=== PATIENT | female | born 1985 | race Caucasian/White ===

== ENCOUNTER 2024-04-04 11:33 | Emergency (ER) | payer OTHER, SELFPAY ==
[2024-04-04 11:35] VITALS: BP 102/73; PULSE 72; RESP 20; TEMP 36.1; O2SAT 100
--- NOTE | 2024-04-04 12:01 | PC.NURSE ---
Pt arrives with [employer] worker who states pt had alcohol wipe solution stored in her room and was believed to be huffing it. The [place] worker states the patient was then diluting the solution with coffee and was drinking it. Pt denies taking/drinking anything today. Pt states she took her normal meds and is denying any suicidal or homicidal ideation at this time.
[2024-04-04 12:30] LABS: Basophils Absolute Auto 0.1 K/mm3 (0.0-0.1); Basophils Percent Auto 1.5 % (0.2-1.2); Eosinophils Absolute Auto 0.2 K/mm3 (0-0.3); Eosinophils Percent Auto 4.1 % (0-4.4); Hematocrit 34.9 % (37.0-47.0); Hemoglobin 10.7 g/dL (12.0-15.0); Immature Granulocyte Absolute 0.01 K/mm3 (0.00-0.031); Immature Granulocyte Percent A 0.3 % (0-0.5); Immature Platelet Fraction Pct 5.6 % (0.9-11.2); Lymphocytes Absolute Auto 1.57 K/mm3 (0.9-3.2); Lymphocytes Percent Auto 40.1 % (18.3-44.2); Mean Corpuscular HGB Conc 30.7 g/dl (32-36); Mean Corpuscular Hemoglobin 25.7 pg (26-34); Mean Corpuscular Volume 83.9 fl (80-100); Mean Platelet Volume 11.6 fl (7.4-10.4); Monocytes Absolute Auto 0.4 K/mm3 (0.1-0.6); Neutrophils Absolute Auto 1.7 K/mm3 (1.3-6.7); Platelet Count Result 186 k/mm3 (150-375); Red Blood Count 4.16 M/mm3 (4.2-5.4); Red Cell Distribution Width 22.5 % (11.5-14.5); White Blood Count 3.9 K/mm3 (4.5-10.0)
[2024-04-04 12:38] LABS: Appearance Urine Clear (Clear); Bilirubin Urine Negative (Negative); Blood Urine Negative (Negative); Color Urine Yellow (Yellow); Glucose Urine UA Negative (Negative); Ketones Urine Negative (Negative); Leukocyte Esterase Ur Negative LEU/UL (Negative); Nitrate Urine Negative (Negative); Protein Urine Negative (Negative); Specific Grav Ur 1.008 (1.001-1.035); Urobilinogen Urine 0.2 mg/dL (<2.0)
[2024-04-04 12:42] LABS: Ethanol < 10 mg/dL (<10)
[2024-04-04 12:44] LABS: Alanine Aminotransferase 21 U/L (6-35); Albumin Level 4.3 g/dL (3.5-5.1); Alkaline Phosphatase 43 U/L (38-126); Anion Gap 7 mmol/L (4-12); Aspartate Amino Transferase 29 U/L (14-36); Bilirubin,Total 0.4 mg/dL (0.2-1.3); Blood Urea Nitrogen 7 mg/dL (7-17); Carbon Dioxide 25 mmol/L (22-30); Chloride 106 mmol/L (98-107); Estimated CRCL calculation 52 ml/min; Estimated Glomerular Filt Rate 55; Glucose 82 mg/dL (65-110); Potassium 3.7 mmol/L (3.4-5.0); Sodium 138 mmol/L (137-145)
[2024-04-04 12:46] LABS: Add Urine Microscopic? NO
[2024-04-04 12:53] LABS: Barbiturate Screen Urine Negative (Negative); Benzodiazepines Screen Urine Positive (Negative)
[2024-04-04 12:58] LABS: Anisocytosis 1+; Hypochromasia 1+; Microcytosis 1+ (NORMAL); Ovalocytes 1+; Platelet Estimate Adequate (Adequate); Schistocytes None Seen
[2024-04-04 13:12] LABS: Amphetamine Screen Urine Negative (Negative); Cannabinoid Screen Urine Negative (Negative); Cocaine Screen Urine Negative (Negative); Methadone Screen Urine Negative (Negative); Opiate Screen Urine Negative (Negative); Phencyclidine Screen Urine Negative (Negative)
[2024-04-04 14:49] LABS: SARS-CoV-2 RNA PCR Negative (Negative)
--- NOTE | 2024-04-04 15:18 | ED.GENADULT ---
HPI - General Adult General Chief complaint: Psychiatric Symptoms Stated complaint: L foot swelling Time Seen by Provider: 04/04/24 11:38 History of Present Illness HPI narrative: Patient is a 39-year-old female who presents to the ER from [facility] for evaluation of a foot issue. She has had flaking itching of her foot for couple weeks. She is currently in alcohol rehab. She had been drinking seen at [facility] while over there but has not had any for several days. No fevers chills or sweats. No SI or HI. She reports passive depressed mood. Review of Systems Review of Systems: All systems reviewed & are unremarkable except as noted in HPI and below Constitutional: Constitutional: Reports no additional constitutional complaints ENT: Reports system reviewed and no additional complaints, except as documented Cardiovascular: Cardiovascular: Reports no additional cardiovascular complaints Respiratory: Respiratory: Reports no additional respiratory complaints Musculoskeletal: Musculoskeletal: Reports no additional musculoskeletal complaints Integumentary/Breasts: Skin/Breast: Reports pruritus, Denies erythema and Denies rash Neurologic: Reports system reviewed and no additional complaints, except as documented Psychiatric: Psychiatric: Reports depression, Denies homicidal ideation and Denies suicidal ideation [facility] Past Medical History Medical History (Updated 04/04/24 @ 15:22 by Junaid Rojo MD) Alcohol abuse Depression Social History Social History Substance use type: unknown Exam Narrative: GENERAL: Well-appearing, well-nourished, and in no acute distress. HEAD: Normocephalic, atraumatic. ENT: Mucous membranes moist. CHEST: Clear to auscultation. No respiratory distress. HEART: Regular rate and rhythm. Normal peripheral pulses. ABDOMEN: Soft, nontender, nondistended. EXTREMITIES: Normal range of motion. No edema. SKIN: Warm, dry, no rash. athlete's foot flaking skin with mild redness. NEURO: Alert and oriented x3. PSYCH: Normal mood and affect. Course Course Emergency Course: Discussed treatment plan. Discharge. Patient has access to Xanax at her facility. Vital Signs Vital signs: Vital Signs Temperature 97 F L 04/04/24 11:35 Pulse Rate 72 04/04/24 11:35 Respiratory Rate 20 04/04/24 11:35 Blood Pressure 102/73 04/04/24 11:35 Pulse Oximetry 100 04/04/24 11:35 Oxygen Delivery Room Air 04/04/24 11:35 Temperature 97 F L 04/04/24 11:35 Pulse Rate 72 04/04/24 11:35 Respiratory Rate 04/04/24 11:35 Blood Pressure 102/73 04/04/24 11:35 Pulse Oximetry 04/04/24 11:35 Oxygen Delivery Room Air 04/04/24 11:35 Medical Decision Making Vital Signs Vital Signs: Vital Signs Temperature 97 F L 04/04/24 11:35 Pulse Rate 72 04/04/24 11:35 Respiratory Rate 04/04/24 11:35 Blood Pressure 102/73 04/04/24 11:35 Pulse Oximetry 04/04/24 11:35 Oxygen Delivery Room Air 04/04/24 11:35 Temperature 97 F L 04/04/24 11:35 Pulse Rate 72 04/04/24 11:35 Respiratory Rate 04/04/24 11:35 Blood Pressure 102/73 04/04/24 11:35 Pulse Oximetry 04/04/24 11:35 Oxygen Delivery Room Air 04/04/24 11:35 Lab Data 04/04/24 12:18 04/04/24 12:18 Labs: Lab Results 04/04/24 04/04/24 Range/Units 12:18 12:23 WBC 3.9 L (4.5-10.0) K/mm3 RBC 4.16 L (4.2-5.4) M/mm3 Hgb 10.7 L (12.0-15.0) g/dL Hct 34.9 L (37.0-47.0) % MCV 83.9 (80-100) fl MCH 25.7 L (26-34) pg MCHC 30.7 L (32-36) g/dl RDW 22.5 H (11.5-14.5) % Plt Count 186 (150-375) k/mm3 MPV 11.6 H (7.4-10.4) fl Immature Gran % (Auto) 0.3 (0-0.5) % Neut % (Auto) 43.0 L (45.5-73.1) % Lymph % (Auto) 40.1 (18.3-44.2) % [place] % (Auto) 11.0 H (2.6-8.5) % Eos % (Auto) 4.1 (0-4.4) % Baso % (Auto) 1.5 H (0.2-1.2) % Lymph # (Auto) 1.57 (0.9-3.2) K/mm
--- NOTE | 2024-04-04 23:31 | ECG_ITS ---
[facility] [address] Test Date: 2024-04-04 Pat Name: Maryjo Garduno Department: Room: Gender: F [employer]: : [id number] Requested By: Junaid Sanchez Order Number: [id number] Oni MD: Zafar Hernandez M.D. Measurements Intervals [place] Rate: 77 P: 45 WI: 150 QRS: 52 QRSD: 98 T: 36 QT: 419 QTc: 474 Interpretive Statements SINUS RHYTHM NORMAL ECG No previous ECG available for comparison Electronically Signed On 04-06-2024 08:48:09 CDT by Zafar Heranndez M.D.
== END 2024-04-04 15:56 | disposition home or self-care (01) ==
PROVIDERS: Emergency Provider Emergency Medicine
DX: B35.3 Tinea pedis (principal); F10.10 Alcohol abuse, uncomplicated; F32.A Depression, unspecified; Z20.822 Contact with and (suspected) exposure to COVID-19
CPT/HCPCS: 36415; 80053; 80307; 81003; 81025; 84443; 85025; 85055; 87635; 93005; 99283

== ENCOUNTER 2024-04-04 23:23 | Emergency (ER) | payer OTHER, SELFPAY ==
[2024-04-04 23:22] VITALS: BP 99/70; PULSE 76; RESP 16; TEMP 37.1; O2SAT 100
--- NOTE | 2024-04-04 23:44 | ED.GENADULT ---
HPI - General Adult General Chief complaint: Overdose Stated complaint: smoked fentanyl Time Seen by Provider: 04/04/24 23:41 History of Present Illness HPI narrative: Patient is a 39-year-old female who presents the emergency department this evening due to concern for overdose. EMS was called as patient was altered. Patient admits that yesterday morning around 4:00 a.m. she did smoke some weed which she did not know was laced with fentanyl. Shortly after patient's arrival, the facility the patient was sent from which she has been staying at doing some sort of drug program called and informed us that prior to her arrival here she did smoke some more fentanyl. Patient denies this stating that her last fentanyl use was yesterday morning. Patient is currently alert and oriented to person, place, time and situation and answering all of my questions although does appear to be sleepy. Related Data Allergies Allergy/AdvReac Type Severity Reaction Status Date / Time Corticosteroids AdvReac Redness of Verified 04/05/24 00:00 (Glucocorticoids) Skin PMFSH Past Medical History Medical History (Updated 04/06/24 @ 00:00 by Background Daemon) Alcohol abuse Depression Social History Social History Substance use type: marijuana and opiates Exam Narrative: General: Alert, awake, afebrile, in no acute distress. HEENT: PERRL, no rhinorrhea, no post nasal drip, oropharynx clear. Cardiovascular: Regular rate and rhythm, no murmurs, rubs or gallops, no peripheral edema. Respiratory: Clear to auscultation bilaterally, no tachypnea, no wheezing, no rhonchi, no rubs, no respiratory distress. Abdomen: Soft, nontender, nondistended, no rebound, no guarding, no peritoneal signs. Musculoskeletal: No joint swelling or deformity, normal muscle tone. Skin: No rashes or petechia, no signs of infection. Psychiatric: Alert and oriented, normal behavior and judgment for situation. Neurological: Alert and oriented to person, place, and time. Follows all commands. No focal deficits, speech is clear and fluent. Course Vital Signs Vital signs: Vital Signs Temperature 98.8 F 04/04/24 23:22 Pulse Rate 76 04/04/24 23:22 Respiratory Rate 16 04/04/24 23:22 Blood Pressure 99/70 L 04/04/24 23:22 Pulse Oximetry 100 04/04/24 23:22 Oxygen Delivery Room Air 04/04/24 23:22 Temperature 98.8 F 04/04/24 23:22 Pulse Rate 76 04/05/24 04:06 Respiratory Rate 15 04/05/24 04:06 Blood Pressure 102/80 04/05/24 04:06 Pulse Oximetry 100 04/05/24 04:06 Oxygen Delivery Room Air 04/05/24 00:05 Medical Decision Making MDM Narrative Medical decision making narrative: The patient was evaluated by myself in the emergency department. History is obtained from patient who is an independent historian along with EMS and physical exam was performed. External medical records were reviewed at this time. IV was established and pertinent tests were ordered. Patient was administered 1 L IV fluid bolus with normal saline. EKG was obtained which revealed sinus rhythm rate of 77 beats per minute. No ST changes, T wave inversions or evidence of acute ischemia. EKG was independently interpreted by me and is currently pending official cardiology read. Laboratory results obtained revealing no acute process. Urinary drug screen did return back positive for benzos. Differential diagnosis considerations include drug intoxication versus withdrawal. Comorbidities impacting this visit include history of polysubstance abuse. I have evaluated and discussed social determinants of health with the patient that could potentially impact subsequent diagnosis and treatment plans. On repeat assessment of the patient, reevaluation revealed that the patient is doing well and is in no acute distress. Patient symptoms have improved since she arrived to our emergency department. She was observed in our facility for 4 hours. Repeat vital signs were a
[2024-04-05] MEDS: SODIUM CHLORIDE 0.9% IV 1,000 ML 999 ML IV CONT ×2 (00:02→01:46)
[2024-04-05] MEDS: NALOXONE HCL 0.4 MG/ML VIAL IV PUSH (00:02)
[2024-04-05 00:05] VITALS: O2SAT 100
[2024-04-05 00:06] VITALS: RESP 14
[2024-04-05 00:11] LABS: Basophils Absolute Auto 0.1 K/mm3 (0.0-0.1); Basophils Percent Auto 1.4 % (0.2-1.2); Eosinophils Absolute Auto 0.2 K/mm3 (0-0.3); Eosinophils Percent Auto 4.8 % (0-4.4); Immature Granulocyte Absolute 0.01 K/mm3 (0.00-0.031); Immature Granulocyte Percent A 0.2 % (0-0.5); Immature Platelet Fraction Pct 5.3 % (0.9-11.2); Lymphocytes Absolute Auto 2.03 K/mm3 (0.9-3.2); Lymphocytes Percent Auto 46.8 % (18.3-44.2); Mean Corpuscular HGB Conc 31.3 g/dl (32-36); Mean Corpuscular Hemoglobin 25.8 pg (26-34); Mean Corpuscular Volume 82.5 fl (80-100); Mean Platelet Volume 10.7 fl (7.4-10.4); Monocytes Absolute Auto 0.5 K/mm3 (0.1-0.6); Monocytes Percent Auto 10.4 % (2.6-8.5); Neutrophils Absolute Auto 1.6 K/mm3 (1.3-6.7); Neutrophils Percent Auto 36.4 % (45.5-73.1); Platelet Count Result 180 k/mm3 (150-375); Red Blood Count 3.88 M/mm3 (4.2-5.4); Red Cell Distribution Width 22.5 % (11.5-14.5); White Blood Count 4.3 K/mm3 (4.5-10.0)
[2024-04-05 00:17] LABS: Acetaminophen < 10 ug/mL (10-30); Salicylate < 1.0 mg/dL (2-20)
[2024-04-05 00:19] LABS: Alanine Aminotransferase 19 U/L (6-35); Albumin Level 3.7 g/dL (3.5-5.1); Alkaline Phosphatase 41 U/L (38-126); Anion Gap 4 mmol/L (4-12); Aspartate Amino Transferase 23 U/L (14-36); Bilirubin,Total 0.2 mg/dL (0.2-1.3); Blood Urea Nitrogen 7 mg/dL (7-17); Calcium 9.1 mg/dL (8.4-10.2); Carbon Dioxide 25 mmol/L (22-30); Chloride 108 mmol/L (98-107); Estimated CRCL calculation 62 ml/min; Estimated Glomerular Filt Rate > 60; Glucose 96 mg/dL (65-110); Potassium 3.5 mmol/L (3.4-5.0); Sodium 137 mmol/L (137-145)
[2024-04-05 00:31] LABS: Ethanol < 10 mg/dL (<10)
[2024-04-05 00:44] LABS: Platelet Estimate Adequate (Adequate)
[2024-04-05 00:45] LABS: Anisocytosis 1+; Microcytosis 1+ (NORMAL); Ovalocytes 1+; Schistocytes None Seen
[2024-04-05 00:59] LABS: Amphetamine Screen Urine Negative (Negative); Barbiturate Screen Urine Negative (Negative); Benzodiazepines Screen Urine Positive (Negative); Cannabinoid Screen Urine Negative (Negative); Cocaine Screen Urine Negative (Negative); Methadone Screen Urine Negative (Negative); Opiate Screen Urine Negative (Negative); Phencyclidine Screen Urine Negative (Negative)
[2024-04-05 01:54] VITALS: BP 105/72; PULSE 72; RESP 16; O2SAT 99
[2024-04-05 03:00] VITALS: BP 102/80; PULSE 73; RESP 16; O2SAT 98
[2024-04-05 04:06] VITALS: BP 102/80; PULSE 76; RESP 15; O2SAT 100
== END 2024-04-05 04:08 ==
PROVIDERS: Emergency Provider Emergency Medicine
DX: T40.411A Poisoning by fentanyl or fentanyl analogs, accidental (unintentional), initial encounter (principal); F10.10 Alcohol abuse, uncomplicated; F32.A Depression, unspecified
CPT/HCPCS: 36415; 80053; 80307; 81003; 81025; 84443; 85025; 85055; 87635; 93005; 96361; 96374; 99284; J2310; J7030

== ENCOUNTER 2025-10-17 16:17 | Emergency (ER) | payer OTHER, SELFPAY ==
--- OUTSIDE RECORDS SUMMARY | 2025-10-16 13:20 | XMS_ITS ---
Author Organization [facility] Address [address] [place] [address] Phone [phone] Care Team Providers Care Ethics Instructor Name Role Phone Nupur Pickard Primary Care Provider [phone] Miri Kirby Unavailable Elba Kumar Unavailable [phone] REASON FOR VISIT 1 week f/u Social History Tobacco Use: Social History Observation Description Date Details (start date - stop date) Current Smoker NA - NA Sex Observation Social History Observation Description Sex Observation Female Sexual Orientation Social History Observation Description Sexual Orientation Straight or heterose xual Gender Identity Social History Observation Description Gender Identity Female SDOH Assessments Tool Assessment Assessment LOINC Value Assessment Notes Goals Interventions General Notes SUNNY (LOINC: 07974-6 ) Total Score: 15 Please specify Case Management Follow-up Alcohol use: Drinks at least 20 beers, recent relapse Dietary habits: Does not eat meat Living situation: Residing in a women's facility until October 28 Date Completed/Updated: 09/10/2025 What is your current housing situation? 18899-0 I do not have housing (staying with others, in a hotel, in a long term, living outside on the street, on a beach, or in a park) (RB00912-7) Are you worried about losing your housing? 61815-0 Yes (LA33-6) What is the highest level of school that you have finished? 97883-0 More than high school (QK10703-7) What is your current work situation? 19656-1 Unemployed and seeking work (VI93833-8) In the past year, have you o r any family members you live with been unable to get any of the following when it was really needed? Check all that apply 02414-3 Clothing (SF14706-6) Utilities (GM00905-9) Phone (JN12847-2) Medicine or any health care (medical, dental, mental health or vision) (VW29259-2) Food (OR58326-8) Has lack of transportation k ept you from medical appointments, meetings, work or from getting things needed for daily living? 20267-5 Yes, it has kept me from medical appointments or from getting my medications (AR90207-0) Yes, it has kept me from non-medical meetings, appointments, work, or getting things needed for daily living (YH53986-0) How often do you see or talk to people that you care about and feel close to? (For example: talking to friends on the phone, visiting friends or family, going to roman catholic or club meetings) 52283-9 More than 5 times a week (BD61443-4) How stressed are you? Stress is when someone feels tense, nervous, anxious, or can\t sleep at night because their mind is troubled 79884-2 Very much (BZ10179-0) In the past year have you sp ent more than 2 nights in a row in a skilled nursing, longterm, long-term center, or juvenile correctional facility? 97834-1 No (LA32-8) Do you feel physically and e motionally safe where you currently live? 94396-2 No (LA32-8) In the past year, have you b een afraid of your partner or ex-partner? 07747-7 No (LA32-8) Are you a refugee? I choose not to answer this question What country are you from? I choose not to answer this question PRAPARE Score: 15 Enabling Services Provided? Yes Social History Social Determinants Social Info Question Answer Notes PRAPARE Date Completed/Updated: 09/10/2025 What is your current housing situation? I do not have housing (staying with others, in a hotel, in a long term, living outside on the street, on a beach, or in a park) Are you worried about losing your housing? Yes What is the highest level of school that you have finished? More than high school What is your current work situation? Unemployed and seeking work In the past year, have you o r any family members you live with been unable to get any of the following when it was really needed? Check all that apply Food,Clothing,Utilities,Medicine or any health care (medical, dental, mental health or vision),Phone Has lack of transportation k ept you from medical appointments, meetings, work or from getting things needed for daily living? Yes, it has kept me from medical appointments or from getting my medications,Yes, it has kept me from non-medical meetings, appointments, work, or getting things needed for daily living How often do you see or talk to people that you care about and feel close to? (For example: talking to friends on the phone, visiting friends or family, going to roman catholic or club meetings) More than 5 times a week How stressed are you? Stress is when someone feels tense, nervous, anxious, or can\t sleep at night because their mind is troubled Very much In the past year have you sp ent more than 2 nights in a row in a skilled nursing, longterm, long-term center, or juvenile correctional facility? No Are you a refugee? I choose not to answer this q uestion What country are you from? I choose not to answe r this question Do you feel physically and e motionally safe where you currently live? No In the past year, have you b een afraid of your partner or ex-partner? No PRAPARE Score: 15 Enabling Services Provided? Yes Please specify Case Management Follow-up Tobacco Use: Social Info Question Answer Notes Tobacco Control (Standard) Tobacco use: Current smoker Section Notes: Alcohol use: Drinks at least 20 beers, recent relapse Dietary habits: Does not eat meat Living situation: Residing in a women's facility until October 28 Encounters Date Time Type Facility Location Provider Diagnosis 10/16/2025 01:20 PM Office Visit [facility] [address] [place] [address] Elba Kumar Mental health disorder F99 Assessments Encounter Date Diagnosis (ICD Code) Assessment Notes Treatment Notes Section Notes 10/16/2025 Mental health disorder (ICD-10 - F99) 10/16/2025 Other Clinician met w ith client to assess needs and preferences for services. Clinician explored therapy goals, history of engagement, psychiatric history and diagnosis. Clinician provided education on same day call in therapy, traditional therapy and dramatic coach services. Referrals for preferred methods will be sent following appointment. Plan Of Treatment Treatment Notes Assessment Notes Other Clinician met with aba delgado to assess needs and preferences for services. Clinician explored therapy goals, history of engagement, psychiatric history and diagnosis. Clinician provided education on same day call in therapy, traditional therapy and dramatic coach services. Referrals for preferred methods will be sent following appointment. Next Appt Details Follow Up: prn, Reason: Provider Name:Elba Kumar, 10/22/2025 02:00:00 PM, [address], [place], [address], Provider Name:Elba mayberry, 10/30/2025 09:00:00 AM, [address], [place], [address], Provider Name:Miri rankin, 11/14/2025 10:00:00 AM, [address] [place] [address], [id number], Medical (General) History Medical History History ICD Code severe depression ETOH colitis fatty liver Opioid use disorder Alcohol use disorder Anxiety disorder Surgical History Surgery Date(Month/Year) breast augmentation Collarbone surgery, end may Hospitalization History Reason Date(Month/Year) Concussion and intoxication, [facility] for detox 08/2025 [facility] for concussion after a fall 09/01 025 [facility] [place] 07/2024 [facility] Alcohol/Drug detox Alcohol/Drug [facility] 07/2024 Progress Notes * Maryjo GARDUNODOB:[birth year] (40 yo F)Acc No.[id number]:10/16/2025 Patient: Maryjo TRAORE Provider: Kenneth Kumar :1985 A ge:40 Y S ex:Female Date:10/16/2025 Address:[address] [place] [address] [address] [facility] [facility] Pcp:Nupur Stewart Short Check In:01:15 PM CSTCheck O ut:02:22 PM LEGAL RESEARCH ANALYST Subjective: * Chief Complaints: * HPI: a TBC For Mental Health Services: Do You Have A Psychiatric Provider? D o You Have A Psychiatric Provider? Y es Miri Kirby at [facility]. D o You Have Any Other Professional Supports? D o You Have Any Other Professional Supports? Y es MAT services with Elba Rangel at [facility]. C onsent Forms Completed During Appointment C onsent Forms Completed N one Needed at this time. A ssessment of Social Determinants of Health::: Has A PRAPARE Been Completed In The Past Year? H as a PRAPARE Been Completed In The Past Year? Y es, W as It Completed Today Using SmartForm? N o.? P sychiatric Assessment - Current Symptoms: Primary concern today Aba delgado was meeting for a 1-week mental health follow-up with clinician . O verview of Mental Health Symptoms T he client reported she feels she is in a much better place and that her medications are finally working well to help her maintain her homeostasis. The client discussed some updates on her romantic relationship; Both actual interactions she had with her partner and her cognitions about her relationship. The clincian provided psychoeducation on cyclical patterns in relationships that contribute to toxicity and productive ways to identify and break these cycles. The clinician helped the client identify DICE criteria for exploring coping strategies and understanding what is most effective for her when it comes to developing coping skills. The clinician introduced the idea of liminal spaces and watched a EVITA talk video with the client to better understand this concept. The client and clinican will meet again next week to explore the Moises Window and continue proactively planning for the client's mental health care following discharge from the unit. D epression Screening: PHQ-9 L ittle interest or pleasure in doing things N ot at all, F eeling down, depressed, or hopeless S everal days, T rouble falling or staying asleep, or sleeping too much M ore than half the days, F eeling tired or having little energy N ot at all, P oor appetite or overeating S everal days, F eeling bad about yourself or that you are a failure, or have let yourself or your family down S everal days, T rouble concentrating on things, such as reading the newspaper or watching television S ever, M oving or speaking so slowly that other people could have noticed; or the opposite, being so fidgety or restless that you have been moving around a lot more than usual N ot at all, T houghts that you would be better off or of hurting yourself in some way N ot at all, T otal Score 6 , I nterpretation M ild Depression. I ntervention D epression Screening Findings P ositive, F ollow-Up for Depression Kenneth matthews is admitted to a [facility] unit where their mental health is monitored,No Referral necessary, patient involved in behavioral health treatment,Prescribed psychotropic medications SI was from prior to hospitalization.? S creening: [place] Suicide Severity Rating Scale (LF) D o you want to initiate with S creener form SI was from prior to hospitalization, I nterpretation: M oderate Risk, 6 . Suicide Behavior Question: Have you ever done anything,started to do anything, or prepared to end your life? Y es, W ere any of these in the past 3 months? Y es, 2 . Suicidal Thoughts: Have you actually had any thoughts of killing yourself? N o, 1 . Wish to be : Have you wished you were or wished you could go to sleep and not wake up? N o.? Client has experience suicidal thoughts and behaviors in the last 3 months. Client was admitted as a High Risk and has been meeting with clinician weekly to routinely monitor her SI. The client is not currently experiencing thoughts of suicide, has no plan, and has no intent. * Screening: * * Social History: S ocial Determinants: Kenneth Bonilla ate Completed/Updated: 11/10/2024, W hat is your current housing situation? I do not have housing (staying with others, in a hotel, in a long term, living outside on the street, on a beach, or in a park), A re you worried about losing your housing? Y es, W hat is the highest level of school that you have finished? M ore than high school, W hat is your current work situation? U nemployed and seeking work, I n the past year, have you or any family members you live with been unable to get any of the following when it was really needed? Check all that apply F ood,Clothing,Utilities,Medicine or any health care (medical, dental, mental health or vision),Phone, H as lack of transportation kept you from medical appointments, meetings, work or from getting things needed for daily living? Y es, it has kept me from medical appointments or from getting my medications,Yes, it has kept me from non-medical meetings, appointments, work, or getting things needed for daily living, H ow often do you see or talk to people that you care about and feel close to? (For example: talking to friends on the phone, visiting friends or family, going to roman catholic or club meetings) M ore than 5 times a week, H ow stressed are you? Stress is when someone feels tense, nervous, anxious, or can\t sleep at night because their mind is troubled V jin much, I n the past year have you spent more than 2 nights in a row in a skilled nursing, longterm, long-term center, or juvenile correctional facility? N o, A re you a refugee? I choose not to answer this question, W hat country are you from? I choose not to answer this question, D o you feel physically and emotionally safe where you currently live? N o, In the past year, have you been afraid of your partner or ex-partner? N o, P RAPARE Score: 1 5, E nabling Services Provided? Y es, P maryjo specify C ase Management Follow-up. T obacco Use: T obacco Control (Standard) T obacco use: C urrent smoker. A lcohol use: Drinks at least 20 beers, recent relapse Dietary habits: Does not eat meat Living situation: Residing in a women's facility until October 28. Objective: * Examination: M ental Status Exam: ATTENTION AND CONCENTRATION N o deficits. APPEARANCE A ppropriate. ATTITUDE AND BEHAVIOR C ooperative. EYE CONTACT G ood. AFFECT C ongruent with reported mood. MOOD E uthymic. INSIGHT F air. JUDGMENT F air. Assessment: * Assessment: 1. M ental health disorder - F99 (Primary) Plan: * Treatment: * Procedure Codes: 9 0837 PSYTX PT&/FAMILY 60 MINUTES, Modifiers: AJ * Preventive Medicine: Counseling: S MOKING: Kenneth matthews counselled on the dangers of tobacco use and urged to quit. 1 12/17/2024 .. * Follow Up: p rn * Care Plan Details* * L RESEARCH ANALYST Electronically co-signed by Susanna Rodriguez LCSW, [id number] on 10/17/2025 at 02:49 PM LEGAL RESEARCH ANALYST Sign off status: Completed true * Provider: Kenneth Kumar Date: 12/17/2024 Generated for Artem Dyer/Saira on: 12/18/2024 04:20 PM LEGAL RESEARCH ANALYST History and Physical Notes * HPI (History of Present Illness) Category c/o Denies Symptom Duration Details Notes Catego ry Notes Depression Screening PHQ-9 Little interest or pleasure in doing things: Not at all Feeling down, depressed, or hopeless: Se veral days Trouble falling or staying a sleep, or sleeping too much: More than half the days Feeling tired or having little energy: N ot at all Poor appetite or overeating: Several day s Feeling bad about yourself o r that you are a failure, or have let yourself or your family down: Several days Trouble concentrating on thi ngs, such as reading the newspaper or watching television: Several days Moving or speaking so slowly that other people could have noticed; or the opposite, being so fidgety or restless that you have been moving around a lot more than usual: Not at all Thoughts that you would be b truman off or of hurting yourself in some way: Not at all Total Score: 6 Interpretation: Mild Depression Intervention Depression Screen ing Findings: Positive Follow-Up for Depression: Osito hirsch is admitted to a [facility] residential unit where their mental health is monitored,No Referral necessary, patient involved in behavioral health treatment,Prescribed psychotropic medications SI was from prior to hospitalization Psychiatric Assessment - Current Symptoms Primary concern today Cl jaynt was meeting for a 1-week mental health follow-up with clinician Overview of Mental Health Symptoms The client reported she feels she is in a much better place and that her medications are finally working well to help her maintain her homeostasis. The client discussed some updates on her romantic relationship; Both actual interactions she had with her partner and her cognitions about her relationship. The clincian provided psychoeducation on cyclical patterns in relationships that contribute to toxicity and productive ways to identify and break these cycles. The clinician helped the client identify DICE criteria for exploring coping strategies and understanding what is most effective for her when it comes to developing coping skills. The clinician introduced the idea of liminal spaces and watched a EVITA talk video with the client to better understand this concept. The client and clinican will meet again next week to explore the Moises Window and continue proactively planning for the client's mental health care following discharge from the unit Screening [place] Suicide Severity Rating Scale (LF) Do you want to initiate with: Screener form SI was from prior to hospitalization Client has experience suicidal thoughts and behaviors in the last 3 months. Client was admitted as a High Risk and has been meeting with clinician weekly to routinely monitor her SI. The client is not currently experiencing thoughts of suicide, has no plan, and has no intent. Interpretation:: Moderate Risk 6. Suicide Behavior Question: Have you ever done anything,started to do anything, or prepared to end your life?: Yes Were any of these in the past 3 months?: Yes 2. Suicidal Thoughts: Have you actually had any thoughts of killing yourself?: No 1. Wish to be : Have you wished you were or wished you could go to sleep and not wake up?: No Assessment of Social Determinants of Health:: Has A PRAPARE B een Completed In The Past Year? Has a PRAPARE Been Completed In The Past Year?: Yes Was It Completed Today Using SmartForm?: No [facility] Do You Have A Psychiatric Provider? Do You Have A Psychiatric Provider?: Yes Miri Kirby at [facility] Do You Have Any Other Professional Supports? Do You Have Any Other Professional Supports?: Yes MAT services with Elba Rangel at [facility] Consent Forms Co mpleted During Appointment Consent Forms Completed: None Needed at this time Examination Category Field Details Notes Category Notes Mental Status Exam ATTENTION AND CONCENTRATION No defi cits APPEARANCE Appropriate ATTITUDE AND BEHAVIOR Cooperative EYE CONTACT Good AFFECT Congruent with repor evita mood MOOD Euthymic INSIGHT Fair JUDGMENT Fair
--- NOTE | ~2025-10-17 | CT_ITS ---
EXAMINATION: CT brain wo con DATE: 10/17/2025 18:07 INDICATION: Worst headache of her life TECHNIQUE: Computed tomography (CT) of the head was performed without intravenous contrast. Sagittal and coronal reconstructions were performed. The mA was adjusted according to patient size. Iterative reconstruction technique was employed. The dose-length product was 605.33 mGy-cm. COMPARISON: None FINDINGS: No acute intracranial hemorrhage, acute infarction or abnormal extra axial fluid collection. Ventricles are normal and symmetric. No mass/mass effect. The orbits, paranasal sinuses and mastoid air cells are normal. IMPRESSION: 1. Normal head CT. Reviewed, dictated and finalized at location A. RMATION SYSTEMS PROJECT MANAGER IMPRESSION: 1. Normal head CT.
--- OUTSIDE RECORDS SUMMARY | 2025-10-17 09:00 | XMS_ITS ---
Author Organization [facility] Address [address] [place] [address] Phone [phone] Care Team Providers Care Fiber Designer Name Role Phone Nupur Pickard Primary Care Provider Miri Kirby Unavailable Allergies Allergen (clinical drug ingredient) Drug/Non Drug Allergy documented on EMR Reaction Allergy Type Onset Date Status corticosteroid and/or corticosteroid derivative (FN) Corticosteroids rash Drug Allergy 04/02/2024 Active REASON FOR VISIT Invega 156 mg due today then monthly Medications Medication SIG (Take, Route, Frequency, Duration) Notes Start Date End Date Diagnosis (ICD Code) Status Daily-Nanda - Tablet TAKE 1 TABLET BY MOUTH DAILY; Duration: 30 Adult general medical examination (ICD_10 - Z00.00) Active Docusate Sodium 100 MG Capsule 1 capsule as needed Orally Once a day; Duration: 30 day(s) 10/04/2025 Constipation (ICD_10 - K59.00) Active Magnesium Citrate 1.745 GM/30ML Solution 300 mL Orally once; Duration: 1 days 10/09/2025 Constipation (ICD_10 - K59.00) Active Buprenorphine HCl-Naloxone HCl 8-2 MG Film 1 film under the tongue and allow to dissolve Sublingual 4 times a day 10/04/2025 Opioid use disorder (ICD_10 - F11.99) Active traZODone HCl 150 MG Tablet 1 tablet at bedtime Orally Once a day; Duration: 30 days 09/30/2025 Bipolar disord er (ICD_10 - F31.9) Active OLANZapine 20 MG Tablet 1 tablet Orally Once a day; Duration: 30 days at bedtime 09/30/2025 Bipolar disorder (ICD_10 - F31.9) Active OXcarbazepine 300 MG Tablet 1 tablet Orally Twice a day; Duration: 30 days Bipolar disord er (ICD_10 - F31.9) Active Nicotine 21 MG/24HR Patch 24 Hour 1 patch to skin. 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 Refresh Tears 0.5 % Solution as directed Ophthalmic twice a day 09/18/2025 Dry eyes, bilateral (ICD_10 - H04.123) Active Pyridoxine HCl 50 MG Tablet 1 tablet Orally daily; Duration: 90 days 09/18/2025 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 Mirtazapine 15 MG Tablet 0.5 tablet at bedtime Orally Once a day; Duration: 30 days 10/03/2025 Bipolar disord er (ICD_10 - F31.9) Active busPIRone HCl 7.5 MG Tablet 1 tablet Orally 3 times a day; Duration: 30 days Bipolar disord er (ICD_10 - F31.9) Active Invega Sustenna 156 MG/ML Suspension Prefilled Syringe 1 mL in 1 week Intramuscular once a month; Duration: 30 days 10/10/2025 Bipolar disorder (ICD_10 - F31.9) Active risperiDONE 0.25 MG Tablet 1 tablet in the morning Orally Once a day 10/03/2025 Bipolar disorder (ICD_10 - F31.9) Active Invega Sustenna 234 MG/1.5ML Suspension Prefilled Syringe 1.5 mL Intramuscular Today; Duration: 1 days 10/10/2025 Bipolar disorder (ICD_10 - F31.9) Active Nicotine Polacrilex 4 MG Gum Chew 1 piece as needed for nicotine cravings Mouth/Throat up to every hour (max of 20 pieces per day) 09/30/2025 Nicotine dependence, unspecified, uncomplicated (ICD_10 - F17.200) Active hydrOXYzine Pamoate 25 mg Capsule TAKE 1 TO 2 CAPSULES BY MOUTH EVERY FOUR HOURS NEEDED FOR ANXIETY, AGITATION OR INABILITY TO SLEEP; Duration: 15 Alcohol abuse (ICD_10 - F10.10) Active Propranolol HCl 20 MG Tablet 1.5 tablets Orally 3 times a day Migraine (ICD_10 - G43.909) Active Social History Sex Observation Social History Observation Description Sex Observation Female Sexual Orientation Social History Observation Description Sexual Orientation Straight or heterose xual Gender Identity Social History Observation Description Gender Identity Female Vital Signs Vital Sign Value Appt Date Weight 117.6 lbs 10/17/2025 Height 61 in 10/17/2025 BMI 22.22 kg/m2 10/17/2025 Blood pressure systolic 108 mm Hg 10/17/20 25 Blood pressure diastolic 68 mm Hg 025 Heart Rate 79 /min 10/17/2025 Oximetry 98 % 10/17/2025 Respiratory Rate 18 /min 10/17/2025 Encounters Date Time Type Facility Location Provider Diagnosis 09:00 AM Office Visit [facility] [place] [address] Miri Kirby Bipolar disorder F31.9 Assessments Encounter Date Diagnosis (ICD Code) Assessment Notes Treat ment Notes Section Notes 10/17/2025 Bipolar disorder (ICD-10 - F31.9) Plan Of Treatment Next Appt Details Provider Name:Elba Kumar, 10/22/2025 02:00:00 PM, [address], [place], [address], Provider Name:Elba mayberry, 10/30/2025 09:00:00 AM, [address] [place], [address], Provider Name:Miri Cartwright Montrell rankin, 11/14/2025 10:00:00 AM, [address] [place], [address], Medications Administered Medication Instructions Date of Administration Dosage Diagnosis (ICD Code) Notes Invega Sustenna 10/17/2025 156 mg [place] manFrancia 10/17/2025 08:35 AM EVALUATION ASSISTANT >Given IM RMD, tolerated well. [facility]# [id number]. Medical (General) History Medical History History ICD Code severe depression ETOH colitis fatty liver Opioid use disorder Alcohol use disorder Anxiety disorder Surgical History Surgery Date(Month/Year) breast augmentation Collarbone surgery, may Hospitalization History Reason Date(Month/Year) Concussion and intoxication, [facility], [place] for detox 08/2025 [facility] for concussion after a fall 09/01 025 [place] 07/2024 [facility] Alcohol[facility]Drug detox [facility] Progress Notes * Maryjo GARDUNODOB:[birth year] (40 yo F)Acc No.[id number]:10/17/2025 Progress Note Patient: Maryjo TRAORE Provider: Chloe Kirby DNP, PMHNP-BC, ICE SELLER :1985 A ge:40 Y S ex:Female Date:10/17/2025 Address:[address] [place] [address] , [facility] Pcp:Nupur Stewart Short Check In:07:59 AM CSTCheck O ut:08:52 AM EVALUATION ASSISTANT Subjective: * Chief Complaints: * I nvega 156 mg due today then monthly * Screening: * * Medical History: * Surgical History: b reast augmentation Collarbone surgery, may * Hospitalization/Major Diagno stic Procedure: [facility] 07/2024[place] 05/2024 stays a couple of times Alcohol/Drug Detox [facility]/Drug detox [place] 07/20[facility], * Medications: T akingIsoniazid 300 MG Tablet 3 tablets Orally Once a week Rifapentine 150 MG Tablet 6 tablets Orally once a week Pyridoxine HCl 50 MG Tablet 1 tablet Orally daily Refresh Tears 0.5 % Solution as directed Ophthalmic twice a day MiraLax 17 GM/SCOOP Powder 17 gm Orally daily As needed constipationNicotine 21 MG/24HR Patch 24 Hour 1 patch to skin. Transdermal Once a day, removing at bedtime Melatonin 5 MG Tablet 1 tablet at bedtime as needed Orally Once a day OXcarbazepine 300 MG Tablet 1 tablet Orally Twice a day OLANZapine 20 MG Tablet 1 tablet Orally Once a day at bedtimetraZODone HCl 150 MG Tablet 1 tablet at bedtime Orally Once a day Buprenorphine HCl-Naloxone HCl 8-2 MG Film 1 film under the tongue and allow to dissolve Sublingual 4 times a day Docusate Sodium 100 MG Capsule 1 capsule as needed Orally Once a day Daily-Nanda - Tablet TAKE 1 TABLET BY MOUTH DAILY Magnesium Citrate 1.745 GM/30ML Solution 300 mL Orally once hydrOXYzine Pamoate 25 mg Capsule TAKE 1 TO 2 CAPSULES BY MOUTH EVERY FOUR HOURS NEEDED FOR ANXIETY, AGITATION OR INABILITY TO SLEEP Propranolol HCl 20 MG Tablet 1.5 tablets Orally 3 times a day Nicotine Polacrilex 4 MG Gum Chew 1 piece as needed for nicotine cravings Mouth/Throat up to every hour (max of 20 pieces per day) Invega Sustenna 234 MG/1.5ML Suspension Prefilled Syringe 1.5 mL Intramuscular Today Invega Sustenna 156 MG/ML Suspension Prefilled Syringe 1 mL in 1 week Intramuscular once a month busPIRone HCl 7.5 MG Tablet 1 tablet Orally 3 times a day risperiDONE 0.25 MG Tablet 1 tablet in the morning Orally Once a day Mirtazapine 15 MG Tablet 0.5 tablet at bedtime Orally Once a day Taking Isoniazid 300 MG Tablet 3 tablets Orally Once a week Taking Rifapentine 150 MG Tablet 6 tablets Orally once a week Taking Pyridoxine HCl 50 MG Tablet 1 tablet Orally daily Taking Refresh Tears 0.5 % Solution as directed Ophthalmic twice a day Taking MiraLax 17 GM/SCOOP Powder 17 gm Orally daily As needed constipationTaking Nicotine 21 MG/24HR Patch 24 Hour 1 patch to skin. Transdermal Once a day, removing at bedtime Taking Melatonin 5 MG Tablet 1 tablet at bedtime as needed Orally Once a day Taking OXcarbazepine 300 MG Tablet 1 tablet Orally Twice a day Taking OLANZapine 20 MG Tablet 1 tablet Orally Once a day at bedtimeTaking traZODone HCl 150 MG Tablet 1 tablet at bedtime Orally Once a day Taking Buprenorphine HCl-Naloxone HCl 8-2 MG Film 1 film under the tongue and allow to dissolve Sublingual 4 times a day Taking Docusate Sodium 100 MG Capsule 1 capsule as needed Orally Once a day Taking Daily-Nanda - Tablet TAKE 1 TABLET BY MOUTH DAILY Taking Magnesium Citrate 1.745 GM/30ML Solution 300 mL Orally once Taking hydrOXYzine Pamoate 25 mg Capsule TAKE 1 TO 2 CAPSULES BY MOUTH EVERY FOUR HOURS NEEDED FOR ANXIETY, AGITATION OR INABILITY TO SLEEP Taking Propranolol HCl 20 MG Tablet 1.5 tablets Orally 3 times a day Taking Nicotine Polacrilex 4 MG Gum Chew 1 piece as needed for nicotine cravings Mouth/Throat up to every hour (max of 20 pieces per day) Taking Invega Sustenna 234 MG/1.5ML Suspension Prefilled Syringe 1.5 mL Intramuscular Today Taking Invega Sustenna 156 MG/ML Suspension Prefilled Syringe 1 mL in 1 week Intramuscular once a month Taking busPIRone HCl 7.5 MG Tablet 1 tablet Orally 3 times a day Taking risperiDONE 0.25 MG Tablet 1 tablet in the morning Orally Once a day Taking Mirtazapine 15 MG Tablet 0.5 tablet at bedtime Orally Once a day * Allergies: C orticosteroids: rash - Onset Date 04/02/2024no[Allergies Verified] Objective: * Vitals: W t:117.6, Ht: 61, BMI:22.22, BP:108/68, HR:79, Oxygen sat %:98, RR:18. Assessment: * Assessment: 1. B ipolar disorder - F31.9 (Primary) Plan: * Treatment: * Therapeutic Injections: Invega Sustenna : 156 mg (Dose No:1) (Route: Intramuscular) given by ANUEL Rios on right deltoid (Bipolar disorder) * Procedure Codes: [id number] THER/PROPH/DIAG INJ, SC/IM * * UATION ASSISTANT Sign off status: Completed true * Provider: Chloe Kirby DNP, PMHNP-BC, ICE SELLER Date: 12/18/2024 Generated for Printing/Faxing/eTransmitting on: 12/18/2024 04:20 PM EVALUATION ASSISTANT
[2025-10-17 16:19] VITALS: BP 109/73; PULSE 79; RESP 16; TEMP 36.6; O2SAT 100
--- OUTSIDE RECORDS SUMMARY | 2025-10-17 16:21 | XMS_ITS | Clinical Summary ---
Author Organization [facility] Address [address] [place] [address] Care Team Providers Care Nursing Staff Development Coordinator Name Role Phone Ramon Randolph MD Primary Care Provider [phone] Allergies Active Allergy Reactions Criticality Noted Date Comments Corticosteroids (Glucocorticoids) Hives,Itching,Swell ing Medium 10/08/2017 When used ear drops for ear infection with unknown antibiotic. Medications copper (PARAGARD) 380 square mm IUDIndications:Pr egnancy Contraception 1 each by intrauterine route once Active nicotine (NICODERM CQ) 21 mgIndications:Nitin otine Dependence Place 1 patch on the skin daily for 24 hours 30 patch 025 Active nicotine polacrilex (NICORETTE) 2 mg gumIndications:Sm oking Cessation Chew 1 each (2 mg total) every hour as needed for smoking cessation 100 each 025 Active QUEtiapine (SEROquel) 300 mg tabletIndications :Depression Treatment Adjunct Take 1 tablet (300 mg total) by mouth nightly 30 tablet 025 Active QUEtiapine (SEROquel) 50 mg tabletIndications :Depression Treatment Adjunct Take 1 tablet (50 mg total) by mouth daily 30 tablet 025 Active naloxone (NARCAN) 4 mg/actuation spray,non-aerosol Indications:Opiat e-Induced Respiratory Depression Administer 1 spray into affected nostril(s) as needed for opioid reversal Call 911. Administer a single spray in one nostril. Repeat every 3 minutes as needed if no or minimal response. 2 each 3 Active polyethylene glycol (MIRALAX) 17 gram/dose bulk powderIndications :constipation Take 17 g by mouth daily Active ondansetron (ZOFRAN) 4 mg tablet Take 1 tablet (4 mg total) by mouth every 6 (six) hours 12 tablet Active acetaminophen (TYLENOL) 500 mg tablet Take 1 tablet (500 mg total) by mouth every 6 (six) hours as needed for pain 30 tablet Active PARoxetine (PAXIL) 40 mg tabletIndications :Opioid use disorder Take 1 tablet (40 mg total) by mouth every morning 30 tablet 2 Active lactulose 0.67 gram/mL solutionIndicatio ns:Other constipation Take 15 mL (10 g total) by mouth every 6 (six) hours as needed (constipation) 473 mL 1 Active bisacodyl EC (DULCOLAX EC) 5 mg EC tabletIndications :constipation Take 1 tablet (5 mg total) by mouth daily as needed for constipation 60 tablet Active buprenorphine-nal oxone (SUBOXONE) 8-[address] 1 Film under the tongue daily Active ondansetron ODT (ZOFRAN-ODT) 4 mg disintegrating tabletIndications :Prevention of Post-Operative Nausea and Vomiting Take 1 tablet (4 mg total) by mouth every 8 (eight) hours as needed for nausea or vomiting 10 tablet Active docusate sodium (COLACE) 100 mg capsuleIndication s:constipation Take 1 capsule (100 mg total) by mouth 2 (two) times a day 60 capsule Active aspirin 81 mg chewable tabletIndications :prevention of thrombosis Take 1 tablet (81 mg total) by mouth 2 (two) times a day 60 tablet Active cyclobenzaprine (FLEXERIL) 10 mg tablet Take 1 tablet (10 mg total) by mouth 3 (three) times a day as needed for muscle spasms for up to 30 doses 30 tablet Active HYDROcodone-aceta minophen (NORCO) 5-325 mg per tablet Take 1 tablet by mouth every 8 (eight) hours as needed for pain for up to 30 doses 30 tablet Active ibuprofen (ADVIL,MOTRIN) 800 mg tablet TAKE 1 TABLET BY MOUTH THREE TIMES A DAY 90 tablet Active promethazine (PHENERGAN) 25 mg tablet Take 1 tablet (25 mg total) by mouth every 6 (six) hours as needed for nausea or vomiting 30 tablet Active guanFACINE ER (INTUNIV) 2 mg tablet extended release 24 hr Take 1 tablet (2 mg total) by mouth every morning Active lamoTRIgine (LaMICtal) 25 mg tablet Take 1 tablet (25 mg total) by mouth daily Active scopolamine 1 mg over 3 days patch [address] 1 patch on the skin every third day as needed (nausea) for 72 hours 4 patch 2 Active linaCLOtide (LINZESS) 145 mcg capsuleIndication s:Other constipation Take 1 capsule (145 mcg total) by mouth daily 30 capsule 025 2025 Active gabapentin (NEURONTIN) 300 mg capsuleIndication s:anxiety Take 2 capsules (600 mg total) by mouth 3 (three) times a day 180 capsule 025 2025 Active busPIRone (BUSPAR) 7.5 mg tabletIndications :Generalized anxiety disorder TAKE 1 TABLET BY MOUTH 3 TIMES A DAY. 270 tablet 1 Active gabapentin (NEURONTIN) 300 mg capsuleIndication s:anxiety Take 2 capsules (600 mg total) by mouth 3 (three) times a day 180 capsule 2 025 2024 Discontinued(R eorder) linaCLOtide (LINZESS) 145 mcg capsuleIndication s:Other constipation Take 1 capsule (145 mcg total) by mouth daily 30 capsule 2 025 2024 Discontinued(R eorder) busPIRone (BUSPAR) 7.5 mg tablet Take 1 tablet (7.5 mg total) by mouth 3 (three) times a day 025 2024 Discontinued Active Problems Problem Noted Date Diagnosed Date Abnormal laboratory test result 06/25/2025 Cervical pain 06/25/2025 Nonspecific reaction to cell mediated immunity measurement of gamma interferon antigen response without active tuberculosis 06/25/2025 Pain in the coccyx 06/25/2025 Sciatica 06/25/2025 Tobacco use disorder 06/25/2025 Vitamin D deficiency 06/25/2025 Closed displaced fracture of shaft of left clavi juan jose 06/25/2025 Generalized anxiety disorder 04/24/2025 Epigastric pain 04/16/2025 Assessment & Plan (04/16/2025 4:55 PM CDT): Reports that she is having complaints of epigastric burning sensation as well as nausea and vomiting. She reports that she is having a constant discomfort that has been going on for the last few months. She presented to the ED on 04/05 with increasing complaints and imaging showed evidence of colitis, and mild wall thickening of the distal esophagus. -EGD scheduled at this time -We will start omeprazole b.i.d. to help minimize her complaints -Educated on importance of marijuana cessation -Educated on importance of avoiding certain trigger foods including coffee, soda, fried greasy foods, tomato based products, and acidic foods Constipation 04/16/2025 Assessment & Plan (04/16/2025 4:59 PM CDT): Reports that she has chronic complaints of constipation which he will not have a bowel movement for up to 5 days. Does admit that her Suboxone that she currently takes seems to increase her complaints. Recently only prescribed lactulose by her psychiatrist and feels that this has been somewhat therapeutic however she still continues to have mild complaints. States that she can strain at certain times. No reports of blood or mucus. -Colonoscopy scheduled at this time -Recommended increase her daily fiber intake -Continue her daily lactulose Nausea & vomiting 04/16/2025 Assessment & Plan (04/16/2025 4:57 PM CDT): Reports that she is having complaints of nausea as well as vomiting for the last few months. States that she can have epigastric discomfort as well. States that she can sporadically gets extremely nauseous and the can projectile vomit. States that emesis can be the food that she is eating or can be biliary in nature. She was recently seen in the ED regarding these complaints. She does admit that she smokes marijuana. -Discussed possible etiologies including but not limited to GERD, cannabis hyperemesis, gallbladder dysfunction, and others. -EGD for further evaluation -Recommended marijuana cessation - Recommended for her to start daily PPI to help minimize her complaints. Abnormal finding on GI tract imaging 04/16/2025 Assessment & Plan (04/16/2025 4:58 PM CDT): 04/05/2025 CT scan showed evidence of colitis, although nonspecific most likely infectious or inflammatory. Trace amount of free fluid in the right lower quadrant likely reactive. Mild wall thickening distal esophagus may be due to esophagitis. -Colonoscopy/EGD scheduled at this time -Did complete antibiotics for possible infectious colitis Major depressive disorder 01/28/2025 Assessment & Plan (01/29/2025 12:11 PM CDT): Pt with worsening of mood in setting of ETOH relapse and recent breakup. Ddx includes substance induced depression, borderline personality disorder, MDD less likely. Pt reporting SI has resolved with sobriety, pointing more towards substance induced depression. Pt also reports hx of BPD and reports meeting 9 out of 9 criteria. Likely BPD is contributing to pt's impulsivity and chronic SI. -continue home seroquel 50 mg daily, 300 mg nightly -start effexor 75 mg for anxiety Suicide and self-inflicted i njuries by jumping from high place, initial encounter 01/27/2025 Assessment & Plan (01/27/2025 11:48 AM CDT): As per psychiatry. Had a suicide attempt 09/2024. TSH wnl. Anemia 01/27/2025 Assessment & Plan (01/27/2025 11:48 AM CDT): Chronic. B12 & iron studies ok. TSH wnl. So unclear etiology. Might be a thalassemia or other chronic hemoglobinopathy. Borderline personality disorder 01/27/2025 Opioid use disorder 01/27/2025 Assessment & Plan (01/28/2025 1:19 PM CDT): Per charts, pt was previously on suboxone 24 mg TDD. Pt reports being on 32 mg TDD, though no record of this. -suboxone 8 mg TID Suicidal ideation 01/22/2025 Assessment & Plan (01/22/2025 6:20 AM CDT): Suicide precautions Awaiting medical clearance Patient refers alcohol consumption with multiple tablets: 3 Seroquel tablets, 4 gabapentin tablets, and Suboxone film x1 IV fluids Acetaminophen, salicylate, and repeat alcohol levels pending Alcohol intoxication 01/22/2025 Assessment & Plan (01/22/2025 6:21 AM CDT): Initial alcohol level 213, repeat level 78 Patient refers consuming a 5th of vodka and several beers daily CIWA protocol Moderate protein-calorie malnutrition 10/07/2024 Intentional overdose, initial encounter 10/05/20 24 Polysubstance abuse 03/19/2024 Overview (04/05/2024): Since she established care here in May of 2021 she was instructed to establish with Psychiatry for management of her bipolar disorder. She was given multiple referral and still has not done this almost 3 years later. She was admitted to hospital on November 27, 2023 after she got into some type of verbal argument with her father. She took an uncertain quantity of Xanax, Prozac, Zyprexa, and Ambien. Estimated total number of pills was between 100-150. Her drug screen was also positive for cannabis and cocaine. She also was positive for ethanol. Incidentally she was noted to be anemic with a hemoglobin of 8.6 and hematocrit 28.1. Her iron was 15, TIBC 411, and transferrin saturation of 4. She was transferred [facility]. They made no changes to her medication. She was set up with psychiatric follow-up [facility] for December 05 at 11:00 a.m.. She was then admitted on 12/02/2023 for acute alcohol intoxication. While in rehab for alcohol intoxication she called the office requesting prescriptions. After talking to the rehab facility they said they will be discharging her with medications. We requested to sign release of information so we can get the record she refused. It looks like they stopped her alprazolam. Started her on buspirone, trazodone, hydroxyzine, and naltrexone. She was in the ER on 03/17/2024. She was found passed out in the bushes outside of a bar. She states she was drinking alcohol and doing drugs, but would not elaborate on what drugs. She tested positive for amphetamines, marijuana, benzodiazepines, and cocaine. Her ethanol level was 162. She was discharged to home after she sobered up. Assessment & Plan (04/09/2024 2:32 PM CDT): Anneliese. She is following with [facility]. Stopped her alprazolam. Explained to her that we will no longer fill the alprazolam or the zolpidem. Alcohol dependence with uncomplicated withdrawal 03/14/2024 Assessment & Plan (01/29/2025 12:11 PM CDT): Last drink on 01/21/25. Received some doses of Librium while at [facility]. Also started on clonazepam 1 mg TID while there. Pt is out of window for ETOH withdrawal but may still withdraw from clonazepam. Pt reports she has been on clonazepam 1 mg TID for 3 years, though there is no record of this. -D/c AWAS -did not offer naltrexone as we are attempting to decrease polypharmacy Assessment & Plan (04/09/2024 3:11 PM CDT): Anneliese. Given her the name of [facility]. She will continue with AA Iron deficiency anemia due to chronic blood loss 12/08/2023 Assessment & Plan (04/09/2024 2:53 PM CDT): Iron panel done recently looks good. Hemoglobin hematocrit are stable. Continue ferrous sulfate Assessment & Plan (12/13/2023 7:40 AM RESIDENTIAL DIRECTOR): Most likely related to menstrual cycle. Would start her on iron 325 mg 3 times a day. Recheck CBC and iron panel in one-month Panic attacks 09/29/2022 Assessment & Plan (12/13/2023 7:40 AM RESIDENTIAL DIRECTOR): Continue fluoxetine. Explained to her she needs to follow-up psychiatry for refills of the alprazolam because I will no longer be refilling it. Assessment & Plan (08/01/2023 1:55 PM CDT): Still having panic attacks. Continue fluoxetine and alprazolam p.r.n. Encouraged to keep appointment at [facility] later in the month. Assessment & Plan (10/20/2022 9:31 AM RESIDENTIAL DIRECTOR): Improving with alprazolam and increase of fluoxetine Assessment & Plan (09/29/2022 2:51 PM RESIDENTIAL DIRECTOR): Will increase fluoxetine to 60 mg once a day. Given number to [facility]. Needs to have psychiatric follow up. Stop zolpidem. Start Alprazolam 0.25 mg three times a day. Rib pain on right side 07/29/2022 Assessment & Plan (07/29/2022 11:11 AM CDT): No history of injury. On exam superficial pain over right anterior ribs. Possibly costochondritis. Lingers for 4 weeks. Will try meloxicam one-month supply until pain gets better. Primary insomnia 07/29/2022 Assessment & Plan (04/09/2024 2:33 PM CDT): Stable on trazodone. Assessment & Plan (12/13/2023 7:40 AM RESIDENTIAL DIRECTOR): Explained to her she will need to get the refills of zolpidem through psychiatry because I will no longer be refilling them. Assessment & Plan (07/29/2022 11:09 AM CDT): Not controlled with mirtazapine and alprazolam. Will discontinue both and change to Ambien. It worked better in the past. Rash 07/29/2022 Assessment & Plan (06/16/2023 4:16 PM CDT): Recurrent. First time noted almost a year ago. This time got worse 2 weeks ago. No particular distribution. Prior intolerance to prednisone. Will refill triamcinolone cream, can try hydroxyzine for pruritus. And will refer to Dermatology. Assessment & Plan (07/29/2022 11:06 AM CDT): Onset 2 months ago. Diffuse, overall body except neck and head. Unknown cause. Patient had reaction to oral prednisone previously. Will try topical steroid cream. Discussed possible triggers. Try to change detergent. If rash will not improve after treatment call me back. Will consider changing fluoxetine or Zyprexa. Irregular periods/menstrual cycles 09/03/2021 Vaping nicotine dependence, non-tobacco product 06/11/2021 Assessment & Plan (07/29/2022 10:00 AM CDT): Counseled on cessation of vaping for over 3 minutes. Assessment & Plan (06/11/2021 3:05 PM CDT): Counseled on cessation of vaping for over 3 minutes. BMI 28.0-28.9,adult 06/11/2021 Bipolar 1 disorder, depressed 06/11/2021 Overview (12/08/2023): Stanislav is a 38-year-old with PTSD, bipolar 1 disorder, panic attacks, insomnia who on November 27, 2023 got into some type of verbal argument with her father. She took an uncertain quantity of Xanax, Prozac, Zyprexa, and Ambien. Estimated total number of pills was between 100-150. Her drug screen was also positive for cannabis and cocaine. She also was positive for ethanol. Incidentally she was noted to be anemic with a hemoglobin of 8.6 and hematocrit 28.1. Her iron was 15, TIBC 411, and transferrin saturation of 4. She was transferred [facility]. They made no changes to her medication. She was set up with psychiatric follow-up [facility] for December 05 at 11:00 a.m.. She presents today for hospital follow-up. Assessment & Plan (04/09/2024 3:00 PM CDT): She will be following with Psychiatry at [facility]. She has no longer on alprazolam. Stable on fluoxetine Zyprexa. Assessment & Plan (12/13/2023 7:40 AM RESIDENTIAL DIRECTOR): Stable on fluoxetine and Zyprexa. She will need continue follow-up with Psychiatry. Assessment & Plan (07/28/2023 9:56 AM CDT): Stable on Zyprexa and fluoxetine Assessment & Plan (09/29/2022 2:47 PM RESIDENTIAL DIRECTOR): Continue Zyprexa and Fluoxetine. Assessment & Plan (07/29/2022 11:06 AM CDT): Stable on Zyprexa and fluoxetine. Assessment & Plan (07/17/2021 2:13 PM CDT): Poorly controlled. Not much difference after fluoxetine was increased up to 40 mg a day. I discussed with patient again that she needs to establish with psychiatrist. I advised her to call her insurance to locate nearest provider she can see. For now continue current meds, zyprexa, remeron, lamotrigine, fluoxetine. She requested refill for alprazolam. Will make 1 more refill. After that manage with psychiatrist. Assessment & Plan (06/11/2021 3:29 PM CDT): Will try to find psychiatrist in insurance. Continue zyprexa, remeron, lamotrigine. Increase fluoxetine 40 mg once a day General medical exam 05/29/2021 Overview (05/29/2021): Added automatically from request for surgery [id number] Assessment & Plan (01/27/2025 11:46 AM CDT): Added on HIV & RPR for routine screening No other medical issues or complaints identified Remainder of plan as per psychiatry Assessment & Plan (07/29/2022 11:07 AM CDT): Normal CMP and CBC this month. Follows with database administration project manager for control. Last Pap normal with negative HPV last year. Discussed with patient need to stop vaping nicotine. Resolved Problems Problem Noted Date Diagnosed Date Resolved Date Cystitis with hematuria 10/01/2022 0803/2023 Assessment & Plan (10/01/2022 10:37 AM RESIDENTIAL DIRECTOR): Drink plenty of fluids. If develop fever, uncontrolled vomiting, marked general decline, go to ER. Will need IV antibiotics and fluids. Right upper quadrant abdominal pain 07/19/2022 07/29/2022 Left foot pain 09/16/2021 07/29/2022 Assessment & Plan (09/16/2021 1:31 PM RESIDENTIAL DIRECTOR): Patient advised to walk on heel until results of x-ray back. Continue icing and elevation. Due to significant pain level will treat pain with Groom. Hives 07/17/2021 2022 Assessment & Plan (07/17/2021 2:14 PM CDT): Also, can try Benadryl 25 mg at night. Allergy list has corticosteroids on it; however, during discussion pt stated stated she had allergic reaction when used ear drops with steroid in it for ear infection. Most likely it was reaction to antibiotic. Ok to try triamcinolone cream. If pt will have reaction will know for sure she is allergic to it. Anxiety 07/17/2021 07/17/2021 Avulsion fracture of distal fibula 06/11/2021 07/29/2022 Fall injury while running 06/11/2021 Fracture of left tibia 06/11/202107/29 Myofascial muscle pain 05/23/201807/29 Cervical radiculopathy 02/08/201801/11 Encounters Date Type Department Care Team Description 10/03/2025 Telephone [facility] Medical Group Family Medicine at [address] [place] [address] Ramon Randolph MD Med Refill 08/15/2025 Telephone [facility] Medical [facility] Family Medicine at [address] [place] [address] Ramon Randolph MD Symptom Based Call 08/13/2025 11:15 AM CDT Office Visit [facility] Medical [facility] Orthopedics and Sports Medicine [address] [place] [address] [address] [place] [address] Rema De La Rosa, Follow-up examination after orthopedic surgery (Primary Dx); Closed displaced fracture of left clavicle, unspecified part of clavicle, sequela 08/13/2025 11:13 AM CDT - 08/13/2025 11:59 PM CDT Hospital Encounter [facility] Di[facility] Imaging [address] [place] [id number] Follow-up examination after orthopedic surgery Discharge Disposition: Discharge to home or self care 08/05/2025 Orders Only [facility] Family Medicine at [address] [place] [address] Ramon Randolph MD 07/25/2025 Telephone [facility] Family Medicine at [address] [place] [address] Ramon Randolph MD Symptom Based Call 07/23/2025 Telephone [facility] Gastroenterology at [address] [place] [address] Amber Bella NP from Last 3 Months Immunizations Immunization Administration Dates Next Due Influenza, Unspecified 07/31/2024(Deferr ed: Patient decision),12/15/2023(Deferred: Patient decision) Surgical History Surgery Date Site/Laterality Comments BREAST SURGERY Bilateral augmentation ANKLE FRACTURE SURGERY Right plate and 8 screws COLONOSCOPY 04/22/2025 ESOPHAGOGASTRODUODENOSCOPY Medical History Medical History Date Comments Depression Anxiety Avulsion fracture of distal fibula 06/11/2021 Bipolar 1 disorder (HCC) PTSD (post-traumatic stress disorder) Suicidal behavior with attempted self-injury (HC C) Borderline personality disorder (HCC) Panic attacks 09/29/2022 Anemia 01/27/2025 PONV (postoperative nausea and vomiting) Motion sickness Irritable bowel syndrome GERD (gastroesophageal reflux disease) Family History Medical History Relation Name Comments Diabetes Father Heart attack Father Throat cancer Father's Brother Cervical cancer Maternal Grandmother Uterine cancer Maternal Grandmother Diabetes Mother Early menopause Mother Kidney disease Mother Skin cancer Mother Breast cancer Neg Hx Ovarian cancer Neg Hx Relation Name Status Comments Father Alive Father's Brother Maternal Grandmother Mother Alive Social History Tobacco Use Types Packs/Day Years Used Date Smoking Tobacco: Every Day Vaping Smokeless Tobacco: Never Tobacco Cessation:Ready to Q uit: Not Asked; Counseling Given: Not Answered Comments:8 times a day Alcohol Use Standard Drinks/Week Comments Not Currently 0 (1 standard drink = 0.6 oz pur e alcohol) [facility] Utilities Answer Date Recorded In the past 12 months has e [employer], [email or web address], oil, or water [employer] threatened to shut off services in your home? Patient unable to answer 01/22/2025 Humiliation, Afraid, Rape, and Kick questionnair e Answer Date Recorded Within the last year, have y ou been afraid of your partner or ex-partner? No 01/28/2025 Within the last year, have y ou been humiliated or emotionally abused in other ways by your partner or ex-partner? No Within the last year, have y ou been kicked, hit, slapped, or otherwise physically hurt by your partner or ex-partner? No 01/28/2025 Within the last year, have y ou been raped or forced to have any kind of sexual activity by your partner or ex-partner? No 01/28/2025 Social Connection and Isolation Panel Answer Date Recorded In a typical week, how many times do you talk on the phone with family, friends, or neighbors? Patient unable to answer 01/28/2025 How often do you get togethe r with friends or relatives? Patient unable to answer 01/28/2025 How often do you attend chur ch or scientology services? Never 01/28/2025 Do you belong to any clubs o r organizations such as jain groups, unions, fraternal or athletic groups, or school groups? No 01/28/2025 How often do you attend meet ings of the clubs or organizations you belong to? Patient unable to answer 01/28/2025 Are you , , di vorced, , never , or living with a partner? 01/28/2025 Overall Financial Resource Strain (CARDIA) Answe r Date Recorded How hard is it for you to pa y for the very basics like food, housing, medical care, and heating? Hard 01/28/2025 PHQ-2 Answer Date Recorded PHQ-2 Total Score (If total score is 3 or more points, staff should administer the PHQ-9) 4 04/24/[address] [facility] - Occupational Stress Questionnaire Answer Date Recorded Do you feel stress - tense, restless, nervous, or anxious, or unable to sleep at night because your mind is troubled all the time - these days? Very much 01/28/2025 Exercise Vital Sign Answer Date Recorde d On average, how many days pe r week do you engage in moderate to strenuous exercise (like a brisk walk)? 3 days 01/28/2025 On average, how many minutes do you engage in exercise at this level? 30 min 01/28/2025 Hunger Vital Sign Answer Date Recorded Within the past 12 months, y ou worried that your food would run out before you got the money to buy more. Often true 01/29/20 25 Within the past 12 months, t he food you bought just didn't last and you didn't have money to get more. Often true 01/28/2025 PRAPARE - Transportation Answer Date Re corded In the past 12 months, has l ack of transportation kept you from medical appointments or from getting medications? Yes 12/31 In the past 12 months, has l ack of transportation kept you from meetings, work, or from getting things needed for daily living? Yes 01/28/2025 PHQ-9 Answer Date Recorded PHQ-9 Total Score 14 04/24/2025 Housing Stability Vital Sign Answer Johnnie e Recorded In the last 12 months, was t here a time when you were not able to pay the mortgage or rent on time? Patient unable to answer 01/28/2025 In the past 12 months, how m any times have you moved where you were living? Not on file 01/28/2025 At any time in the past 12 m [facility], were you homeless or living in a custodial (including now)? Yes 01/28/2025 AUDIT-C Answer Date Recorded Q1: How often do you have a drink containing alcohol? Never 06/28/2025 Q2: How many drinks containi ng alcohol do you have on a typical day when you are drinking? Patient does not drink Q3: How often do you have si x or more drinks on one occasion? Never 06/28/2025 Personal Safety Answer Date Recorded Have you ever been in or are you currently in a harmful physical or emotional relationship or is someone making you feel afraid or unsafe? Denies 06/28/2025 Education Answer Date Recorded What is the highest level of school you have completed or the highest degree you have received? 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 Gender Identity Not on file Sexual Orientation Not on file Obstetrics History Para Term AB IAB SAB Ectopic Multiple Livin g Live Births 3 2 2 1 1 2 2 Date Outcome GA Total Labor Labor/2nd/3rd Weight Sex Type Anes PTL Thea A1 A5 Name Clin 004 35w 0d 2.608 kg (5 lb 12 oz) F Vag-S pont Epidur al Livin g Complications:None Delivery Location:[facility] 009 36w 0d 2.438 kg (5 lb 6 oz) F Vag-S pont Epidur al Livin g Complications:None Delivery Location:[facility] 2012 IAB Last Filed Vital Signs Vital Sign Reading Time Taken Comments Blood Pressure 134/97 06/28/2025 4:50 PM CDT Pulse 109 06/28/2025 4:50 PM CDT Temperature 36.4 C (97.5 F) 06/28/2025 4:50 PM CDT Respiratory Rate 16 06/28/2025 4:50 PM CDT Oxygen Saturation 93% 06/28/2025 4:50 PM CDT Inhaled Oxygen Concentration - - Weight 51.7 kg (114 lb) 07/09/2025 10:23 AM CDT Height 157.5 cm (5' 2) 07/09/2025 10:23 AM CDT Body Mass Index 20.85 07/09/2025 10:23 AM CDT Plan of Treatment Health Maintenance Due Date Last Done Comments Breast Cancer Screening-Mammogram 1985 Hepatitis C Screening 1985 Varicella Vaccines (1 of 2 - 13+ 2-dose series) 01/10/1997 Hepatitis B Screening 01/10/2002 Pneumococcal vaccine <65 (1 of 2 - PCV) 01/10/2003 HPV Vaccines (1 - 3-dose SCD M series) 01/10/2011 Cervical Cancer Screening 05/29/2022 05/29/2021 Depression Screening 04/24/2026 04/24/2025, 04/24/2025, 04/09/2024, Additional history exists Regular Well Visit/Exam 18-64 04/24/2026, 07/29/2022, 05/29/2021 DTaP/Tdap/Td Vaccine (2 - Td or Tdap) 09/02/2035 09/02/2025 Influenza Vaccine Completed 08/07/2025 Medical Devices Implanted Type Area Company Dancer Device Identifier Shelf Expiration Date Model / Serial / Lot Screw Screw Right: Ankle Synthes Plate Bone Compression Locking Shaft Cs1 Left Clavicle Va Lcp 2.7mm Ss 02112.620 - [id number] Implanted:Qty: 1 on 06/28/2025 by Rema De La Rosa DO at [facility] Left: Clavicle Synthes [id number] / / Synthes Lcp 1.6mm 150mm 10mm Thread Compression Wire Fixation Nonsterile 410 - [id number] Implanted:Qty: 1 on 06/28/2025 by Rema De La Rosa DO at [facility] Left: Clavicle Synthes 410 / / Synthes Screw Bone Cortical St Lcp 2.7x14mm Ss 202.874 - [id number] Implanted:Qty: 1 on 06/28/2025 by Rema De La Rosa DO at [facility] Left: Clavicle Synthes 202.874 / / Synthes 2.4mm 14mm Self Tap Stardrive Cortex T8 Screw Bone 201.764 - [id number] Implanted:Qty: 1 on 06/28/2025 by Rema De La Rosa DO at [facility] Left: Clavicle Synthes 201.764 / / Synthes 2.7mm 16mm Self Tap Lock Variable Angle Stardrive T8 Screw Bone 02211.016 - [id number] Implanted:Qty: 2 on 06/28/2025 by Rema De La Rosa DO at [facility] Left: Clavicle Synthes 02..016 / / Synthes 2.7mm 18mm Self Tap Lock Variable Angle Stardrive T8 Screw Bone 02.018 - [id number] Implanted:Qty: 3 on 06/28/2025 by Rema De La Rosa DO at [facility] Left: Clavicle Synthes 02..018 / / Synthes 2.7mm 20mm Self Tap Lock Variable Angle Stardrive T8 Screw Bone 02.020 - [id number] Implanted:Qty: 2 on 06/28/2025 by Rema De La Rosa DO at [facility] Left: Clavicle Synthes ..020 / / Synthes 2.7mm 14mm Self Tap Lock Variable Angle Stardrive T8 Screw Bone 02.014 - [id number] Implanted:Qty: 1 on 06/28/2025 by Rema De La Rosa DO at [facility] Left: Clavicle Synthes 014 / / Explanted Type Area Company Dancer Device Identifier Shelf Expiration Date Model / Serial / Lot Synthes 2.7mm 5mm 18mm 2.5mm Self Tap Stardrive Cortical T8 Screw Bone 202.878 - [id number] Explanted:Qty: 1 on 06/28/2025 at [facility] Synthes 202.878 / / Procedures Procedure Name Priority Date/Time Associated Diagnosis Comments XR CLAVICLE LEFT COMPLETE Schedule Routine, Read Routine (OP Routine) 08/13/2025 11:18 AM CDT Follow-up examination after orthopedic surgery THINPREP PAP WITH HPV Routine 05/29/2021 11:04 AM CDT from Last 3 Months or Most Recently Relevant to Health Maintenance Results * XR Clavicle Left (08/13/2025 11:18 AM CDT) Anatomical Region Laterality Modality Clavicle, Chest Left Computed Radiogr aphy 08/14/2025 12:2 7 PM CDT Narrative 08/14/2025 12:28 PM CDT EXAM DESCRIPTION: XR CLAVICLE LEFT COMPLETE REASON FOR STUDY: fracture Injury/fx 06/22/25, ORIF done 06/28/25 TECHNIQUE: 2 radiographic view(s) of the left clavicle . COMPARISON: 07/09/2025 FINDINGS: There is redemonstration of the postsurgical changes involving the left clavicle with fixation plate and screws. There is grossly stable alignment. There is mild progression healing changes with subtle sclerosis and callus formation. IMPRESSION: 1. Grossly stable alignment of previously visualized left clavicular fracture with mild progression healing changes. THIS IS AN ELECTRONICALLY VERIFIED FINAL REPORT 08/14/2025 12:28 PM - Electronically signed by Ivis Randolph D.O. PS T: Report ID: [id number] Reading Location: [id number] Procedure Note Ivis Randolph DO - 08/14/2025 EXAM DESCRIPTION: XR CLAVICLE LEFT COMPLETE REASON FOR STUDY: fracture Injury/fx 06/22/25, ORIF done 06/28/25 TECHNIQUE: 2 radiographic view(s) of the left clavicle . COMPARISON: 07/09/2025 FINDINGS: There is redemonstration of the postsurgical changes involvingthe left clavicle with fixation plate and screws. There is grossly stable alignment. There is mild progression healing changes with subtlesclerosis and callus formation. IMPRESSION: 1. Grossly stable alignment of previously visualized left clavicular fracture with mild progression healing changes. THIS IS AN ELECTRONICALLY VERIFIED FINAL REPORT 08/14/2025 12:28 PM - Electronically signed by Ivis Randolph D.O. PS T: Report ID: [id number] Reading Location: [id number] Rema De La Rosa DO IM XR PROCEDURES Final Result * ThinPrep Pap with HPV (05/29/2021 11:04 AM CDT) Pap test 05/29/2021 11:0 4 AM CDT 05/29/2021 11:04 AM CDT Narrative 06/03/2021 2:[address] [facility] Department of Pathology [address] [place] [id number] Final Report with Addendum Note to Patients: This report may contain a detailed description of human tissue sent by a health care provider to the laboratory for pathologic evaluation. The content of this report is essential for diagnosis and may provide important critical findings. This information may be unfamiliar to patients to review without a medical professional present. It is advised that the patient review this report in the presence of a health care provider who can answer questions and explain the details. Patient Name: STANISLAV GARDUNO Address: [address] [place] [address] , [place] [id number] Gender: F : 1985 (Age: 36) Service: Laboratory Location: N : [id number] [facility] #: [id number] Patient Type: [facility] SPECIMEN Taken: 05/29/2021 Received: 05/29/2021 Accessioned:: 06/01/2021 Reported: 06/03/2021 Physician(s): Jennifer Canales M.D. [facility] Diagnosis: Source of Specimen: Imaged Thinprep Pap Test plus HPV - Rn Triage Cytologic Material Specimen Adequacy: - Satisfactory for evaluation; endocervical/transformation zone component present General Category: - Negative for intraepithelial lesion or malignancy ELLIOT Whittaker(ASCP) Report Electronically Reviewed and Signed Out By LIEN WhittakerASCP) 06/03/2021 14:25:40 Addenda: HPV Test Interpretation NEGATIVE for types 16, 18, 31, 33, 35, 39, 45, 51, 52, 56, 58, 59, 66 and 68. Test performed utilizing Gen-Probe Aptima assay. ELLIOT Whittaker(ASCP) Report Electronically Reviewed and Signed Out By ELLIOT Whittaker(ASCP) 06/02/2021 11:12:01 Specimen(s) Received: A: Imaged Thinprep Pap Test plus HPV - Rn Triage Cytologic Material Clinical History: Last Menstrual Period: 01/2021 Menstrual History: Irregular Cycles Routine Checkup The Pap test is a screening test used to aid in the detection of cervical cancer and its precursors. It should not be the sole means by which malignant and premalignant lesions are diagnosed. Both false negative and false positive results may occur. It also has poor sensitivity for the detection of endometrial lesions and should not be used to evaluate suspected endometrial abnormalities. For these reasons it is most important to obtain Pap tests at regular intervals. The performance characteristics of some immunohistochemical stains, fluorescence in-situ hybridization tests and immunophenotyping by flow cytometry cited in this report (if any) were determined by the Surgical Pathology Department at [facility] as part of an ongoing senior supplier quality engineer program and in compliance with federally mandated regulations drawn from the Clinical Laboratory Improvement Act of 1988 (CLIA '88). Some of these tests rely on the use of analyte specific reagents and are subject to specific labeling requirements by the US Food and Drug Administration. Such diagnostic tests may only be performed in a facility that is certified by the Department of Health and Human Services as a high complexity laboratory under CLIA '88. The FDA has determined that such clearance or approval is not necessary. This test is used for clinical purposes. It should not be regarded as investigational or for research. Nevertheless, federal rules concerning the medical use of analyte specific reagents require that the following disclaimer be attached to the report: This test was developed and its performance characteristics determined by the Surgical Pathology Department [facility]. It has not been cleared or approved by the U. S. Food and Drug Administration. Jennifer Canales MD LAB CYTOLOGY ORDERABLES Final Re sult from Last 3 Months or Most Recently Relevant to Health Maintenance Insurance [facility] [employer]ET[employer] BETTER [facility] AETNA BETTER [facility] Advance Directives For more information, please contact: [phone] * Full Code (Latest Code Status on File) Date Activated Date Inactivated Comments 01/27/2025 2:14 AM 01/27/2025 3:50 AM * Full Code Date Activated Date Inactivated Comments 10/05/2024 11:15 PM 10/17/2024 7:03 PM Care Teams Nursing Staff Development Coordinator Relationship Specialty Start Date End Date Ramon Randolph MD [address] [place] [id number] PCP - General Family Medicine 04/24/25
--- OUTSIDE RECORDS SUMMARY | 2025-10-17 16:21 | XMS_ITS | Patient Health Record ---
Author Organization [facility] Address [address] [place] [address] Phone [phone] Care Team Providers Care Homemaker Companion Name Role Phone Nupur Pickard Primary Care Provider [phone] Miri Kirby Unavailable [phone] Elba Rangel APRN Unavailable [phone] Timoteo Yang Unavailable [phone] Susanna Rodriguez LCSW Unavailable [phone] Fabby Hawkins Unavailable Susanna Fowler Unavailable [phone] Cristobal Matute Unavailable [phone] Elba Kumar Unavailable [phone] Marichuy Pulido Unavailable [phone] Allergies Allergen (clinical drug ingredient) Drug/Non Drug Allergy documented on EMR Reaction Allergy Type Onset Date Status corticosteroid and/or corticosteroid derivative (FN) Corticosteroids rash Drug Allergy 04/02/2024 Active Results Component Value Reference Range Flag Notes QuantiFERON-TB Gold Plus ([id number]) Order date: 01/10/2025 Reviewed date:01/15/2025 09:52:53 AM Interpretation:Abnormal Performing Lab:[facility] [place], [address] [facility], Phone - [phone], Director - [facility] Notes/Report: QuantiFERON Incubation Incubation performed. QuantiFERON-TB Gold Plus Positive Negative A A response to M tuberculosis antigens has been detected. If patient is at low risk for Tuberculosis, the result should be interpreted with caution and repeat testing on a new specimen is recommended (ATS/IDSA/CDC Clinical Practice Guidelines, 2017). False positives can also occur due to infection by M kansasii, M szulgai, or M marinum. Chemiluminescence immunoassay methodology QuantiFERON Criteria QuantiFERON-TB Gold Plus is a qualitative indirect test for M tuberculosis infection (including disease) and is intended for use in conjunction with risk assessment, radiography, and other medical and diagnostic evaluations. The QuantiFERON-TB Gold Plus result is determined by subtracting the Nil value from either TB antigen (Ag) value. The Mitogen tube serves as a control for the test. QuantiFERON TB1 Ag Value 0.76 QuantiFERON TB2 Ag Value 0.67 QuantiFERON Nil Value 0.01 QuantiFERON Mitogen Value >10.00 CBC With Differential/Platel et* Order date: 09/10/2025 Reviewed date:09/16/2025 03:52:32 PM Interpretation: Performing Lab:[facility] [address] [facility], [place], Phone - [phone], Director - Sun Notes/Report: WBC 5.0 3.4-10.8 x10E3/uL RBC 3.85 3.77-5.28 x10E6/uL Hemoglobin 12.0 11.1-15.9 g/dL Hematocrit 36.8 34.0-46.6 % MCV 96 79-97 fL MCH 31.2 26.6-33.0 pg MCHC 32.6 31.5-35.7 g/dL RDW 13.4 11.7-15.4 % Platelets 231 150-450 x10E3/uL Neutrophils 58 Not Estab. % Lymphs 31 Not Estab. % Monocytes 8 Not Estab. % Eos 2 Not Estab. % Basos 1 Not Estab. % Neutrophils (Absolute) 2.9 1.4-7.0 x10E3/uL Lymphs (Absolute) 1.6 0.7-3.1 x10E3/uL Monocytes(Absolute) 0.4 0.1-0.9 x10E3/uL Eos (Absolute) 0.1 0.0-0.4 x10E3/uL Baso (Absolute) 0.1 0.0-0.2 x10E3/uL Immature Granulocytes 0 Not Estab. % Immature Grans (Abs) 0.0 0.0-0.1 x10E3/uL CBC With Differential/Platel et* Order date: 09/30/2025 Reviewed date:10/09/2025 03:18:27 PM Interpretation: Performing Lab:[facility] [place], [address] [facility], Phone - [phone], Director - [facility] Notes/Report: WBC 3.8 3.4-10.8 x10E3/uL RBC 4.08 3.77-5.28 x10E6/uL Hemoglobin 12.6 11.1-15.9 g/dL Hematocrit 37.9 34.0-46.6 % MCV 93 79-97 fL MCH 30.9 26.6-33.0 pg MCHC 33.2 31.5-35.7 g/dL RDW 13.1 11.7-15.4 % Platelets 191 150-450 x10E3/uL Neutrophils 47 Not Estab. % Lymphs 41 Not Estab. % Monocytes 8 Not Estab. % Eos 3 Not Estab. % Basos 1 Not Estab. % Neutrophils (Absolute) 1.8 1.4-7.0 x10E3/uL Lymphs (Absolute) 1.5 0.7-3.1 x10E3/uL Monocytes(Absolute) 0.3 0.1-0.9 x10E3/uL Eos (Absolute) 0.1 0.0-0.4 x10E3/uL Baso (Absolute) 0.0 0.0-0.2 x10E3/uL Immature Granulocytes 0 Not Estab. % Immature Grans (Abs) 0.0 0.0-0.1 x10E3/uL 14 Panel Urine Drug Screen Order date: 09/30/2025 Reviewed date:09/30/2025 12:51:37 PM Interpretation: Performing Lab: Notes/Report: THC pos MYLENE neg MOP (OPI) neg AMP neg MET neg BAR neg BZO pos MDMA neg MTD neg OXY neg PCP neg BUP pos TCA pos FTY neg Hepatitis C Virus Antibody w /Rflx to Quantitative Real-time PCR ([id number]) Order date: 09/30/2025 Reviewed date:10/09/2025 03:18:27 PM Interpretation: [facility]forming [facility], Phone - [phone], Director - [facility] Notes/Report: HCV Ab Non Reactive Non Reactive Interpretation: Not infected with HCV unless early or acute infection is suspected (which may be delayed in an immunocompromised individual), or other evidence exists to indicate HCV infection. Hepatitis B Surface Antigen (HBsAg Screen) Order date: 09/30/2025 Reviewed date:10/09/2025 03:18:27 PM Interpretation: Performing Lab:[facility], Phone - [phone], Director - [facility] Notes/Report: HBsAg Screen Negative Negative Rapid Plasma Reagin (RPR) Te st With Reflex to Quantitative RPR and Confirmatory Treponema pallidum Antibodies Order date: 09/30/2025 Reviewed date:10/09/2025 03:18:27 PM Interpretation: Performing Lab:[facility] [place], Phone - [phone], Director - [facility] Notes/Report: RPR Non Reactive Non Reactive 12 Panel Urine Drug Screen Order date: 01/10/2025 Reviewed date:01/10/2025 12:42:50 PM Interpretation: Performing Lab: Notes/Report: THC pos MYLENE neg MOP (OPI) neg AMP neg MET neg BAR neg BZO neg MDMA neg MTD neg OXY neg PCP neg BUP pos Breathalyzer Order date: 01/10/2025 Reviewed date:01/10/2025 02:10:12 PM Interpretation: Performing Lab: Notes/Report: ESTEFANY 0.00 12 Panel Urine Drug Screen Order date: 11/01/2024 Reviewed date:11/02/2024 08:46:15 AM Interpretation: Performing Lab: Notes/Report: THC POS MYLENE NEG MOP (OPI) NEG AMP NEG MET NEG BAR NEG BZO NEG MDMA NEG MTD NEG OXY NEG PCP NEG BUP POS CMP 14 Comprehensive Metabol ic Panel* Order date: 09/30/2025 Reviewed date:10/09/2025 03:18:27 PM Interpretation: Performing Lab:[facility] [place], [address] [facility], Phone - [phone], Director - [facility] Notes/Report: Glucose 88 70-99 mg/dL BUN 4 6-24 mg/dL L Creatinine 0.67 0.57-1.00 mg/dL eGFR 113 >59 mL/min/1.73 BUN/Creatinine Ratio 6 9-23 L Sodium 137 134-144 mmol/L Potassium 4.1 3.5-5.2 mmol/L Chloride 99 96-106 mmol/L Carbon Dioxide, Total 24 20-29 mmol/L Calcium 9.4 8.7-10.2 mg/dL Protein, Total 6.2 6.0-8.5 g/dL Albumin 4.3 3.9-4.9 g/dL Globulin, Total 1.9 1.5-4.5 g/dL Bilirubin, Total 0.6 0.0-1.2 mg/dL Alkaline Phosphatase 60 41-116 IU/L AST (SGOT) 22 0-40 IU/L ALT (SGPT) 16 0-32 IU/L HIV Screen *HIV 1, 2 Ab, p24 Ag ([id number]) Order date: 09/30/2025 Reviewed date:10/09/2025 03:18:27 PM Interpretation: Performing Lab:[facility] [address] [facility], Phone - [phone], Director - [facility] Notes/Report: HIV Ab/p24 Ag Screen Non Reactive Non Reactive HIV-1/HIV-2 antibodies and HIV-1 p24 antigen were NOT detected. There is no laboratory evidence of HIV infection. HIV Negative Hemoglobin A1c CLIA Waived Order date: 09/30/2025 Reviewed date:10/03/2025 11:31:56 AM Interpretation: Performing Lab: Notes/Report: Hemoglobin A1c 5.4 4.0 - 6.4 % QuantiFERON-TB Gold Plus ([id number]) Order date: 09/30/2025 Reviewed date:10/09/2025 03:18:27 PM Interpretation: Performing Lab:[facility] [place], [address] [facility], Phone - [phone], Director - [facility] Notes/Report: QuantiFERON Incubation Incubation performed. QuantiFERON-TB Gold Plus Negative Negative No response to M tuberculosis antigens detected. Infection with M tuberculosis is unlikely, but high risk individuals should be considered for additional testing (ATS/IDSA/CDC Clinical Practice Guidelines, 2017). The reference range is an Antigen minus Nil result of <0.35 IU/mL. Chemiluminescence immunoassay methodology QuantiFERON Criteria QuantiFERON-TB Gold Plus is a qualitative indirect test for M tuberculosis infection (including disease) and is intended for use in conjunction with risk assessment, radiography, and other medical and diagnostic evaluations. The QuantiFERON-TB Gold Plus result is determined by subtracting the Nil value from either TB antigen (Ag) value. The Mitogen tube serves as a control for the test. QuantiFERON TB1 Ag Value 0.14 QuantiFERON TB2 Ag Value 0.14 QuantiFERON Nil Value 0.02 QuantiFERON Mitogen Value >10.00 Test, Urine Order date: 09/30/2025 Reviewed date:09/30/2025 12:51:42 PM Interpretation: Performing Lab: Notes/Report: Test, Urine neg Negative - Negative Breathalyzer Order date: 09/30/2025 Reviewed date:09/30/2025 12:51:47 PM Interpretation: Performing Lab: Notes/Report: ESTEFANY 0.000 CMP 14 Comprehensive Metabol ic Panel* Order date: 09/10/2025 Reviewed date:09/16/2025 03:52:32 PM Interpretation: Performing Lab:[facility] [place], [address] [facility], [place], Phone - [phone], Director - Izabela Notes/Report: Glucose 84 70-99 mg/dL BUN 11 6-24 mg/dL Creatinine 0.72 0.57-1.00 mg/dL eGFR 108 >59 mL/min/1.73 BUN/Creatinine Ratio 15 9-23 Sodium 138 134-144 mmol/L Potassium 4.7 3.5-5.2 mmol/L Chloride 98 96-106 mmol/L Carbon Dioxide, Total 28 20-29 mmol/L Calcium 9.1 8.7-10.2 mg/dL Protein, Total 5.7 6.0-8.5 g/dL L Albumin 4.1 3.9-4.9 g/dL Globulin, Total 1.6 1.5-4.5 g/dL Bilirubin, Total 0.3 0.0-1.2 mg/dL Alkaline Phosphatase 59 41-116 IU/L AST (SGOT) 17 0-40 IU/L ALT (SGPT) 15 0-32 IU/L HIV Screen *HIV 1, 2 Ab, p24 Ag ([id number]) Order date: 09/10/2025 Reviewed date:09/16/2025 03:19:51 PM Interpretation: Performing [facility] [address] [facility], Phone - [phone], Director - [facility] Notes/Report: HIV Ab/p24 Ag Screen Non Reactive Non Reactive HIV-1/HIV-2 antibodies and HIV-1 p24 antigen were NOT detected. There is no laboratory evidence of HIV infection. HIV Negative QuantiFERON-TB Gold Plus ([id number]) Order date: 09/10/2025 Reviewed date:09/16/2025 03:52:32 PM Interpretation: Performing Lab:[facility], [address] [facility], Phone - [phone], Director - [facility] Notes/Report: QuantiFERON Incubation Incubation performed. QuantiFERON-TB Gold Plus Positive Negative A A response to M tuberculosis antigens has been detected. If patient is at low risk for Tuberculosis, the result should be interpreted with caution and repeat testing on a new specimen is recommended (ATS/IDSA/CDC Clinical Practice Guidelines, 2017). False positives can also occur due to infection by M kansasii, M szulgai, or M marinum. Chemiluminescence immunoassay methodology QuantiFERON Criteria QuantiFERON-TB Gold Plus is a qualitative indirect test for M tuberculosis infection (including disease) and is intended for use in conjunction with risk assessment, radiography, and other medical and diagnostic evaluations. The QuantiFERON-TB Gold Plus result is determined by subtracting the Nil value from either TB antigen (Ag) value. The Mitogen tube serves as a control for the test. QuantiFERON TB1 Ag Value 0.30 QuantiFERON TB2 Ag Value 0.45 QuantiFERON Nil Value 0.01 QuantiFERON Mitogen Value >10.00 14 Panel Urine Drug Screen Order date: 09/10/2025 Reviewed date:09/10/2025 09:30:03 AM Interpretation: Performing Lab: Notes/Report: THC pos MYLENE neg MOP (OPI) neg AMP neg MET neg BAR neg BZO pos MDMA neg MTD neg OXY neg PCP neg BUP pos TCA neg FTY neg Breathalyzer Order date: 09/10/2025 Reviewed date:09/10/2025 09:30:03 AM Interpretation: Performing Lab: Notes/Report: ESTEFANY 0.000 Test, Urine Order date: 09/10/2025 Reviewed date:09/10/2025 09:30:02 AM Interpretation: Performing Lab: Notes/Report: Test, Urine neg Negative - Negative Reason For Referral Referral Date 09/30/2025 Referral Status Open Reason smoker Diagnosis 1 Alcohol abuse (F10.1 0) [facility] Organization [facility] Referring Provider First Name Tmioteo Referring Provider Last Name Celia Referring Provider Speciality Internal M edicine Referred Provider Specialty Smoking Cess ation Counseling General Notes Fernandoernestina NEAL, Ally Pratt 10/2024 04:17:24 PM >referral sent Referral Priority Routine Referral Appointment Date 09/30/2025 Addressed Referral details can be found under 'Consultation Request Notes' section Medications Medication SIG (Take, Route, Frequency, Duration) Notes Start Date End Date Diagnosis (ICD Code) Status Rifapentine 150 MG Tablet 6 tablets Orally once a week; Duration: 1 days 09/18/2025 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 Daily-Nanda - Tablet TAKE 1 TABLET BY MOUTH DAILY; Duration: 30 Adult general medical examination (ICD_10 - Z00.00) Active Isoniazid 300 MG Tablet 3 tablets Orally Once a week; Duration: 1 days 09/18/2025 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 Docusate Sodium 100 MG Capsule 1 capsule as needed Orally Once a day; Duration: 30 day(s) 10/04/2025 Constipation (ICD_10 - K59.00) Active Refresh Tears 0.5 % Solution as directed Ophthalmic twice a day 09/18/2025 Dry eyes, bilateral (ICD_10 - H04.123) Active hydrOXYzine Pamoate 25 mg Capsule TAKE 1 TO 2 CAPSULES BY MOUTH EVERY FOUR HOURS NEEDED FOR ANXIETY, AGITATION OR INABILITY TO SLEEP; Duration: 15 Alcohol abuse (ICD_10 - F10.10) Active Pyridoxine HCl 50 MG Tablet 1 tablet Orally daily; Duration: 90 days 09/18/2025 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 Magnesium Citrate 1.745 GM/30ML Solution 300 mL Orally once; Duration: 1 days 10/09/2025 Constipation (ICD_10 - K59.00) Active OLANZapine 20 MG Tablet 1 tablet Orally Once a day; Duration: 30 days at bedtime 09/30/2025 Bipolar disorder (ICD_10 - F31.9) Active busPIRone HCl 7.5 MG Tablet 1 tablet Orally 3 times a day; Duration: 30 days Bipolar disord er (ICD_10 - F31.9) Active OXcarbazepine 300 MG Tablet 1 tablet Orally Twice a day; Duration: 30 days Bipolar disord er (ICD_10 - F31.9) Active Invega Sustenna 156 MG/ML Suspension Prefilled Syringe 1 mL in 1 week Intramuscular once a month; Duration: 30 days 10/10/2025 Bipolar disorder (ICD_10 - F31.9) Active Buprenorphine HCl-Naloxone HCl 8-2 MG Film 1 film under the tongue and allow to dissolve Sublingual 4 times a day 10/04/2025 Opioid use disorder (ICD_10 - F11.99) Active Mirtazapine 15 MG Tablet 0.5 tablet at bedtime Orally Once a day; Duration: 30 days 10/03/2025 Bipolar disord er (ICD_10 - F31.9) Active traZODone HCl 150 MG Tablet 1 tablet at bedtime Orally Once a day; Duration: 30 days 09/30/2025 Bipolar disord er (ICD_10 - F31.9) Active risperiDONE 0.25 MG Tablet 1 tablet in the morning Orally Once a day 10/03/2025 Bipolar disorder (ICD_10 - F31.9) Active Acamprosate Calcium 333 MG Tablet Delayed Release 2 tablets Orally Twice a day; Duration: 30 day(s) 10/17/2025 Alcohol use disorder (ICD_10 - F10.99) Active Invega Sustenna 234 MG/1.5ML Suspension Prefilled Syringe 1.5 mL Intramuscular Today; Duration: 1 days 10/10/2025 Bipolar disorder (ICD_10 - F31.9) Active Nicotine 21 MG/24HR Patch 24 Hour 1 patch to skin. Transdermal Once a day, removing at bedtime; Duration: 28 days 09/30/2025 Alcohol abuse (ICD_10 - F10.10) Active Nicotine Polacrilex 4 MG Gum Chew 1 piece as needed for nicotine cravings Mouth/Throat up to every hour (max of 20 pieces per day) 09/30/2025 Nicotine dependence, unspecified, uncomplicated (ICD_10 - F17.200) Active MiraLax 17 GM/SCOOP Powder 17 gm Orally daily; Duration: 28 days As needed constipation Active Propranolol HCl 20 MG Tablet 1.5 tablets Orally 3 times a day Migraine (ICD_10 - G43.909) Active Melatonin 5 MG Tablet 1 tablet at bedtime as needed Orally Once a day; Duration: 30 days 09/10/2025 Anxiety (ICD_1 0 - F41.9) Active Social History Tobacco Use: Social History Observation Description Date Details (start date - stop date) Current Smoker NA - NA Sex Observation Social History Observation Description Sex Observation Female Sexual Orientation Social History Observation Description Sexual Orientation Straight or heterose xual Gender Identity Social History Observation Description Gender Identity Female SDOH Assessments Date Tool Assessment Assessment LOINC Value Assessment Notes Goals Interventions General Notes 2024 PRAYI E (LOINC : 40483- 5) Total Score: 15 Please specify Case Management Follow-up Alcohol use: Drinks at least 20 beers, recent relapse Dietary habits: Does not eat meat Living situation : Residing in a women's facility until October 28 Date Completed/Updated: 09/10/2025 What is your current housing situation? 31025-1 I do not have housing (staying with others, in a hotel, in a long-term, living outside on the street, on a beach, or in a park) (SM98526-4) Are you worried about losing your housing? 59180-8 Yes (LA33-6) What is the highest level of school that you have finished? 78862-2 More than high school (WC39284-9) What is your current work situation? 21337-7 Unemployed and seeking work (VW25352-5) In the past year, have you o r any family members you live with been unable to get any of the following when it was really needed? Check all that apply 07965-7 Clothing (GD91997-2) Utilities (XF69848-1) Phone (PR47327-8) Medicine or any health care (medical, dental, mental health or vision) (CI77018-1) Food (FT58688-1) Has lack of transportation k ept you from medical appointments, meetings, work or from getting things needed for daily living? 73307-2 Yes, it has kept me from medical appointments or from getting my medications (TM59452-8) Yes, it has kept me from non-medical meetings, appointments, work, or getting things needed for daily living (SN75810-6) How often do you see or talk to people that you care about and feel close to? (For example: talking to friends on the phone, visiting friends or family, going to religious or club meetings) 64286-9 More than 5 times a week (QY28955-8) How stressed are you? Stress is when someone feels tense, nervous, anxious, or can\t sleep at night because their mind is troubled 41751-2 Very much (IS29619-3) In the past year have you sp ent more than 2 nights in a row in a longterm, care home, intermediate center, or juvenile correctional facility? 45263-7 No (LA32-8) Do you feel physically and e motionally safe where you currently live? 47038-8 No (LA32-8) In the past year, have you b een afraid of your partner or ex-partner? 69243-9 No (LA32-8) Are you a refugee? I [...] with others, in a hotel, in a long-term, living outside on the street, on a [...] phone, visiting friends or family, going to religious or club meetings) More than 5 times a week How stressed are you? Stress is when someone feels tense, nervous, anxious, or can\t sleep at night because their mind is troubled Very much In the past year have you sp ent more than 2 nights in a row in a longterm, care home, intermediate center, or juvenile correctional facility? No Are [...] Provided? Yes Please specify Case Management Follow-up Miscellaneous Social Info Question Answer Notes Method of learning: Preferred method of learning: Reading,Discussion,Demonstrat ion Primary Social History Social Info Question Answer Notes Living Arrangement Living Arrangement: Independent Thea ing Is this a supportive environment? Yes lives with dad Single Question Alcohol Screening How ma ny times in the past year have you had (4 for women, or 5 for men) or more drinks in a day? 0 Employment Status Employment Status: Unemployed Illicit Substance Usage Illicit Substance Usage: Yes Substance Used: Cocaine Cocaine lased with Fentanyl last use 06/16/2024 Methadone last use 07/18/2024 Alcohol Use Alcohol Use Frequency: Weekly or Daily Type of alcohol consumed Liquor, Beer last use 06/16/2024 Quanity consumed on those occasions 2 pint to a pint in 1/2 also drinks 6 to 8 beers Quanity consumed on those occasions More than 6 Tobacco Use: Social Info Question Answer Notes Tobacco Control (Standard) Tobacco use: Current smoker Section Notes: Alcohol use: Drinks at least 20 beers, recent relapse Dietary habits: Does not eat meat Living situation: Residing in a women's facility until October 28 Problems Problem Type SNOMED Code ICD Code Dates Problem Status W/U Status Risk Notes Problem Tobacco user (869692004) Nicotine dependence, unspecified, uncomplicated (F17.200) Added On:08/02 Active confirmed Problem Borderline personality disorder (05790678) Borderline personality disorder (F60.3) Added On:01/11 Active confirmed Problem Insomnia (009522602) Insomnia (G47.00) Added On:04/03 Onset Date: 04/02/20 Active confirmed Problem Alcohol abuse (50998372) Alcohol abuse (F10.10) Added On:03/13 Active confirmed Problem Substance abuse (6856419352) Substance abuse (F19.10) Added On:09/10 Active confirmed Problem Anxiety (97361195) Anxiety (F41.9) Added On:04/02 Active confirmed Problem Vitamin D deficiency (86420957) Vitamin D deficiency (E55.9) Added On:08/06 Active confirmed Problem Migraine (93619725) Migraine (G43.909) Added On:03/30 Active confirmed Problem Bipolar disorder (25034196) Bipolar disorder (F31.9) Added On:01/11 Active confirmed Problem Cannabis abuse (93173960) Cannabis abuse (F12.10) Added On:04/02 Active confirmed Problem Iron deficiency anemia (92546867) Iron deficiency anemia (D50.9) Added On:03/30 Active confirmed Problem Tear film insufficiency (87991629) Dry eyes, bilateral (H04.123) Added On:09/18 Active confirmed Problem Constipation (30680747) Constipation (K59.00) Added On:07/31 Active confirmed Problem Cocaine abuse (82746605) Cocaine abuse (F14.10) Added On:04/02 Active confirmed Problem Alcohol use disorder (4802419428) Alcohol use disorder (F10.99) Added On:09/12 Active confirmed Problem Laboratory test result abnormal (571709366) Abnormal laboratory test result (R89.9) Added On:08/09 Active confirmed Problem Mental health disorder (16347477) Mental health disorder (F99) Added On:09/30 Active confirmed Problem Cervical pain (51530034) Cervical pain (M54.2) Added On:08/06 Active confirmed Problem Physical examination, complete (05678686) Adult general medical examination (Z00.00) Added On:09/10 Active confirmed Problem Pain in coccyx (finding) (68542462) Coccyx pain (M53.3) Added On:09/17 Active confirmed Problem Cigarette smoker (78225868) Cigarette smoker (F17.210) Added On:09/30 Active confirmed Problem Opioid use disorder (5926769584) Opioid use disorder (F11.99) Added On:08/02 Active confirmed Problem Sciatica (69071083) Low back pain with right-sided sciatica, unspecified back pain laterality, unspecified chronicity (M54.41) Added On:08/06 Active confirmed Problem Interferon gamma assay result indeterminate (954829271) Positive QuantiFERON-TB Gold test (R76.12) Added On:08/09 Active confirmed Vital Signs Vital Sign Value Notes Appt Date Heart Rate 79 /min 10/17/2025 Temperature 97.5 degrees Fahrenheit 09/30 Respiratory Rate 18 /min 10/17/2025 Oximetry 98 % 10/17/2025 Blood pressure diastolic 68 mm Hg Height 61 in 10/17/2025 Blood pressure systolic 108 mm Hg 09/30 Weight 117.6 lbs 10/17/2025 BMI 22.22 kg/m2 10/17/2025 Encounters Date Time Type Facility Location Provider Diagnosis 10/04/20 09:00 AM Office Visit [facility] [place] [address] Timoteo Yang 10/17/20 08:00 AM Office Visit, Est Pt., Level 3 (46255) [facility] [place] [address] Elba Rangel Opioid use disorder F11.99 and Alcohol use disorder F10.99 11/01/19 11:40 AM Office Visit, Est Pt., Level 3 (08376) [facility] [place] [address] Elba Rangel Opioid use disorder F11.99 and Tobacco use disorder F17.200 11/29/19 03:20 PM Telehealth Office Visit, Est Pt., Level 3 (36808) [facility] [address] [place] [address] Miri Kirby Major depressive disorder F32.9 12/04/19 08:40 AM Telehealth Office Visit, Est Pt., Level 3 (62795) [facility] [place] [address] Elba Rangel Opioid use disorder F11.99 01/11/20 11:20 AM Office Visit, Est Pt., Level 4 (25737) [place] [address] [place] [address] Elba Rangel Routine general medical examination at a health care facility Z00.00 and Tuberculosis screening Z11.1 01/11/20 10:40 AM Office Visit [facility] [place] [address] Susanna Fowler Alcohol abuse F10.10 and Major depressive disorder F32.9 01/12/20 02:00 PM BEHAV CHNG SMOKING 3-10 MIN (10316) [address] [place] [address] Miri Kirby Major depressive disorder F32.9 ; Constipation K59.00 ; Borderline personality disorder F60.3 ; Bipolar disorder F31.9 and Nicotine dependence, unspecified, uncomplicated F17.200 08/15/20 09:20 AM Office Visit [facility] [place] [address] Susanna Rodriguez Anxiety F41.9 ; Opioid use disorder F11.99 and Tobacco use disorder F17.200 09/10/20 09:00 AM Office Visit, Est Pt., Level 4 (41352) [address] [address] [place] [address] Cristobal Matute Alcohol abuse F10.10 ; Adult general medical examination Z00.00 ; Constipation K59.00 ; Opioid use disorder F11.99 and Tobacco use disorder F17.200 09/10/20 09:20 AM Office Visit [facility] [address] [place] [address] Elba José Substance abuse F19.10 and Mental health disorder F99 09/12/20 09:00 AM Office Visit, Est Pt., Level 3 (51851) [facility] [address] [place] [address] Jenia Hemar Opioid use disorder F11.99 ; Alcohol use disorder F10.99 and Anxiety F41.9 09/13/20 11:00 AM Telehealth Office Visit, Est Pt., Level 4 (04311) [address] [place] [address] Miri Kirby Bipolar disorder F31.9 ; Anxiety F41.9 and Insomnia G47.00 09/18/20 11:40 AM Office Visit, Est Pt., Level 3 (11059) [facility] [address] [place] [address] Cristobal Matute Poor dental hygiene Z91.89 ; Dental infection K04.7 and Dry eyes, bilateral H04.123 09/19/20 10:00 AM Telehealth Office Visit, Est Pt., Level 3 (15849) [facility] [address] [facility] 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 ; Adult general medical examination Z00.00 ; Insomnia G47.00 ; Substance abuse F19.10 ; Anxiety F41.9 ; Cigarette smoker F17.210 ; Dental infection K04.7 and Dry eyes, bilateral H04.123 09/30/20 11:40 AM Office Visit [facility] [place] [address] Elba Kumar Mental health disorder F99 and Substance abuse F19.10 10/01/20 01:20 PM Office Visit [facility] [place] [address] Cristobal Matute 10/03/20 12:00 PM Office Visit, Est Pt., Level 4 (69547) [address] [place] [address] Miri Kirby Bipolar disorder F31.9 10/04/20 09:20 AM Office Visit, Est Pt., Level 3 (95487) [facility] [place] [address] Elba Rangel Opioid use disorder F11.99 and Constipation K59.00 10/07/20 02:00 PM Office Visit [facility] [address] [facility] [address] Elba Kumar Substance abuse F19.10 and Mental health disorder F99 10/08/20 01:00 PM Office Visit [facility] [address] [facility] [place] [address] Cristobal Matute 10/10/20 08:40 AM Office Visit, Est Pt., Level 3 (36263) [facility] [place] [address] Cristobal Matute Migraine G43.909 ; Constipation K59.00 and Nicotine dependence, unspecified, uncomplicated F17.200 10/10/20 09:40 AM Office Visit, Est Pt., Level 4 (30417) [address] [place] [address] Miri Kirby Bipolar disorder F31.9 and Anxiety F41.9 10/10/20 25 02:20 PM Office Visit [facility] [place] [address] Miri Kirby Bipolar disorder F31.9 10/15/20 25 01:00 PM Office Visit [facility] [address] [place] [address] Cristobal Matute 10/16/20 25 01:20 PM Office Visit [facility] [address] [place] [address] Elba Kumar Mental health disorder F99 10/17/20 25 09:00 AM Office Visit [facility] [address] [place] [address] Miri Kirby Bipolar disorder F31.9 11/29/19 25 04:52 PM Telephone Encounter [address] [place] [address] Miri Kirby 09/20/20 25 02:46 PM Telephone Encounter [facility] [address] [place] [address] Miri Kirby 10/20/20 24 12:55 PM Telephone Encounter [address] [place] [address] Nupur Pickard 11/01/19 25 12:01 PM Telephone Encounter [address] [place] [address] Timoteo Yang Encounter for screening mammogram for breast cancer Z12.31 11/01/19 25 12:50 PM Telephone Encounter [address] [place] [address] Elba Rangel Opioid use disorder F11.99 11/06/19 25 04:12 PM Telephone Encounter [address] [place] [address] Miri Kirby 11/16/19 25 08:18 AM Telephone Encounter [facility] [address] [place] [address] Miri Kirby 11/26/19 25 06:41 AM Telephone Encounter [facility] [address], [place] [address] Miri Kirby Major depressive disorder F32.9 11/27/19 25 01:00 PM Telephone Encounter [address] [place] [address] Elba Rangel Opioid use disorder F11.99 12/03/19 25 10:33 AM Telephone Encounter [address] [place] [address] Miri Kirby 12/03/19 25 11:40 AM Telephone Encounter [facility] [address] [place] [address] Miri Kirby 12/04/19 08:57 AM Telephone Encounter [facility] [address] [place] [address] Miri Kirby 12/11/19 25 10:12 AM Telephone Encounter [address] [address] Elba Rangel Opioid use disorder F11.99 12/14/19 25 01:18 PM Telephone Encounter [address] [place] [address] Elba Rangel 01/04/20 25 10:20 AM Telephone Encounter [facility] [address] [facility] [place] [address] Miri Kirby Opioid use disorder F11.99 01/16/20 25 09:49 AM Telephone Encounter [facility] [address] [facility] [place] [address] Elba Rangel 01/18/20 25 03:41 PM Telephone Encounter [place] [facility] 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 [place] [address] Cristobal Matute Constipation K59.00 10/17/20 08:57 AM Telephone Encounter [facility] [address] [facility] [place] [address] Miri Kirby 11/29/19 25 04:56 AM Web Encounter [facility] [place] [address] Miri Kirby 11/29/19 25 05:05 AM Web Encounter [facility] [place] [address] Elba Rangel Opioid use disorder F11.99 11/29/19 25 05:11 AM Web Encounter [facility] [place] [address] Elba Heavens Opioid use disorder F11.99 Assessments Encounter Date Diagnosis (ICD Code) Assessment Notes Treatment Notes Section Notes 10/10/2025 Migraine (ICD-10 - G43.909) increasing propranolol to 1.5 tablets 3x daily to help not only with anxiety, but to help migraines. Educated patient that if starting to have dizziness, lightheadedness, or feeling excessively tired to stop and tell staff. Patient is in agreeance. 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 History of Suboxone use with previous dosing at four times a day, however, decreased to TID during recent hospitalization. Patient expressed strong cravings and fear of relapse. Provider reviewed history of treatment at [facility] and discussed ongoing management. - Increase Suboxone dosing to 8 mg four times a day. - Refill Suboxone prescription as requested. 09/19/2025 Opioid use disorder (ICD-10 - F11.99) - Continue Suboxone four times daily. 10/04/2025 Opioid use disorder (ICD-10 - F11.99) Patient is currently taking Suboxone. Due for a refill. No issues reported with current regimen. - Refilled Suboxone. 11/01/2024 Opioid use disorder (ICD-10 - F11.99) 11/27/2024 Opioid use disorder (ICD-10 - F11.99) 11/29/2024 Opioid use disorder (ICD-10 - F11.99) 11/29/2024 Opioid use disorder (ICD-10 - F11.99) 12/04/2024 Opioid use disorder (ICD-10 - F11.99) 12/11/2024 Opioid use disorder (ICD-10 - F11.99) 01/10/2025 Tuberculosis screening (ICD-10 - Z11.1) 10/17/2025 Alcohol use disorder (ICD-10 - F10.99) Persistent cravings for alcohol reported. History of daily drinking prior to current management. Triggers identified in current living environment, including documentaries and group discussions. Previous acamprosate use with missed doses after moving units. - Ordered acamprosate for alcohol cravings. 09/12/2025 Alcohol use disorder (ICD-10 - F10.99) Recent setback on alcohol with heavy drinking (at least 20 beers). History of ER visit for intoxication and concussion. Previously tried Vivitrol for cravings, experienced nausea. Provider discussed alternative medication options for alcohol cravings. - Offer Campral (Acamprosate) as new medication for alcohol cravings. - Provide information about Campral and discuss dosing (2 tablets three times a day). 11/01/2024 Encounter for screening mammogram for breast cancer (ICD-10 - Z12.31) 09/10/2025 Mental health disorder (ICD-10 - F99) s 09/30/2025 Mental health disorder (ICD-10 - F99) 10/07/2025 Mental health disorder (ICD-10 - F99) 10/16/2025 Mental health disorder (ICD-10 - F99) 09/10/2025 Adult general medical examination (ICD-10 - Z00.00) Admit to the Mental Health/Crisis Residential Unit and initiate standing/protocol orders: The following PRN medications may be self-administered by patients under the supervision of approved staff or administered by nursing staff: Ibuprofen 200mg, 2-4 tablets by mouth (with food) every 6 hours as needed for pain (unless on lithium). (NOTE: Ibuprofen and acetaminophen may be given together, but alternating is recommended for continuous pain relief. Guaifenesin 400 mg, 1 tablet by mouth every four hours as needed for cough and chest congestion (take with large glass of water). Loratadine 10 mg, 1 tablet by mouth daily as needed for allergies, watery itchy eyes, or sinus drainage. Throat Lozenges, up to 4 tablets by mouth every three to four hours as needed for sore throat. Antacid tablets, 1-2 tablets by mouth every one to two hours as needed for indigestion or heart burn. If the client prefers liquid, could use: Liquid Antacid : 1 ounce by mouth up to four times daily as needed for indigestion or heartburn Omeprazole 20mg, 1 capsule by mouth once daily for 14 days for frequent heartburn (frequent heartburn is more than 2 episodes per week). Do not exceed 14 days. Do not give to client already taking a proton-pump inhibitor: esomeprazole (Nexium), lansoprazole (Prevacid), pantoprazole (Protonix), rabeprazole (Aciphex), dexlansoprazole (Dexilant) Zofran ODT disintegrating (under the tongue) 4 mg, 1-2 tablets every 8 hours as needed for nausea/vomiting. Milk of Magnesia (MOM): 1 ounce (30 milliliters) by mouth every day as needed for constipation. OR Miralax: Stir and fully dissolve 17 grams (1 packet or 1 capful to measured line) in any 4 to 8 ounces of beverage then drink once daily for constipation. Do not use for more than 7 days. OR Docusate 100 mg, 1 capsule twice daily as needed for constipation Hydrocortisone 1% Cream, apply topically (to the skin) to the affected area up to three times daily as needed for itching or inflammation (avoid eyes and genitals). 2% Antifungal Cream, apply topically (to the skin) as directed as needed to affected areas for athlete's foot or jock itch. Triple Antibiotic Ointment, apply topically (to the skin) up to three times daily as needed for minor cuts and scrapes. Carmex or Chapstick, apply topically (to the skin) as needed for chapped lips and skin. Orajel, apply to affected areas as needed for mouth or tooth pain. Lubricating Eye Drops, instill 1-2 drops to the affected eye(s) as needed for dry/irritated eye(s). Hemorrhoid medications, apply to affected area according to directions as needed for hemorrhoid discomfort and itch. Nix (Permethrin 1%) cream 2 ounces, apply topically (to the skin) as directed as needed for head lice. Sunscreen 30 SPF, Apply to exposed skin prior to exposure to sun. The following PRN medications must be approved by nursing staff before self-administration by patients: Diphenhydramine 25 mg, 2 tablets by mouth every 4 hours as needed for allergic reaction or itchy rash. Caution: Do not use hydroxyzine within 4 hours of diphenhydramine and vice versa. Loperamide 2 mg capsules, may give two capsules by mouth for the initial dose, followed by one capsule up to 3 times a day as needed for diarrhea. Acetaminophen 500 mg, 1 - 2 tablets by mouth every six hours as needed for pain. (NOTE: Ibuprofen and acetaminophen may be given together, but alternating is recommended for continuous pain relief). Oxygen-May administer oxygen 2L/min via nasal cannula if O2 saturation is less than 92%, AND client complains of shortness of breath. Target O2 saturation is 94-98%. Caution: Remember too much oxygen can be detrimental to a client with COPD. Oxygen is a drug and should be delivered by trained staff only. Nurses may remove superficial splinters and sutures from skin lacerations. May apply gauze or bandages to any weeping wounds. Contact nursing if there is pus, a foul odor, increased pain/redness/swellin g, or if soaking through bandages. 11/01/2024 Opioid use disorder (ICD-10 - F11.99) Medication increased as above due to reports of cravings and withdrawal symptoms. 10/17/2025 Opioid use disorder (ICD-10 - F11.99) Suboxone therapy ongoing. Patient reports Suboxone is working well and controlling cravings. - Refilled Suboxone prescription. 01/03/2025 Opioid use disorder (ICD-10 - F11.99) 10/10/2025 Constipation (ICD-10 - K59.00) Will have patient continue linzess while on the unit. BM achieved and will have patient follow up with PCP after stay here. Patient in agreeance. 09/18/2025 Dental infection (ICD-10 - K04.7) 2025 Constipation (ICD-10 - K59.00) 10/04/2025 Constipation (ICD-10 - K59.00) Patient reports ongoing constipation. Requests Dulcolax (10 mg) and Colace for relief. Uses medications as needed depending on symptoms. - Prescribed Colace as needed. 10/03/2025 Bipolar disorder (ICD-10 - F31.9) Start risperdal in the morning to help with mood/anxiety. Also testing for tolerance for WILKES. She is open to and likes the idea of a monthly injection instead of daily pills. Start mirtazapine 1/2 tab to help with sleep, this can also help with some anxiety. She did ask about gabapentin. Not starting gabapentin for anxiety. Labs done recently. Continue services as scheduled. Reviewed [facility] May self-administer medications or be administered own oral medications per [facility] protocols. Provided informed consent with understanding of side effects, adverse effects, risks and benefits as well as alternative treatments as previously discussed and with the above recommended medications & other aspects of the treatment program. Agrees to return sooner if symptoms worsen or suicidal or homicidal ideations occur. 10/10/2025 Bipolar disorder (ICD-10 - F31.9) Start Invega Sustenna 234mg IM today, then the 156mg IM monthly starting in 1 week. Stop oral risperidone in 1 week. Continue other medications. Labs done recently. Continue services as scheduled. May self-administer medications or be administered own oral medications per [facility] protocols. Provided informed consent with understanding of side effects, adverse effects, risks and benefits as well as alternative treatments as previously discussed and with the above recommended medications & other aspects of the treatment program. Agrees to return sooner if symptoms worsen or suicidal or homicidal ideations occur. 10/10/2025 Bipolar disorder (ICD-10 - F31.9) 09/30/2025 Cannabis abuse (ICD-10 - F12.10) 01/10/2025 Routine general medical examination at a health care facility (ICD-10 - Z00.00) Stable for admission. Continue [facility] protocol. Encouraged regular f/u with PCP for recommended screenings and physicals. 2025 Major depressive disorder (ICD-10 - F32.9) 11/26/2024 Major depressive disorder (ICD-10 - F32.9) 11/29/2024 Major depressive disorder (ICD-10 - F32.9) 30 day supply of current medications filled from her hospital discharge medication list. She did not want Trazodone filled. Reviewed Prescription Monitoring program. Continue services as scheduled. Labs completed recently. May self-administer medications or be administered own oral medications per [facility] protocols. Provided informed consent with understanding of side effects, adverse effects, risks and benefits as well as alternative treatments as previously discussed and with the above recommended medications & other aspects of the treatment program. Agrees to return sooner if symptoms worsen or suicidal or homicidal ideations occur. 02/25/2025 Bipolar disorder (ICD-10 - F31.9) 10/17/2025 Bipolar disorder (ICD-10 - F31.9) 09/13/2025 Bipolar disorder (ICD-10 - F31.9) Increase bedtime Seroquel to help with sleep and anxiety. Add noon dose of Seroquel 100mg to the morning dose. Continue other medication. She is concerned about weight gain, but with each option in medication changes, she reported other side effects. Discussed focusing on improving sleep and anxiety, then if we need to adjust we can. From reading the discharge summary from 09/02 and 09/03, her information was not consistent from what she said versus what was reported in the documentation. In the past, she was not satisfied with medication options, but wanted a stimulant and benzodiazepine. Labs done recently. Continue services as scheduled. Reviewed COKE WHE[employer]ER May self-administer medications or be administered own oral medications per [facility] protocols. Provided informed consent with understanding of side effects, adverse effects, risks and benefits as well as alternative treatments as previously discussed and with the above recommended medications & other aspects of the treatment program. Agrees to return sooner if symptoms worsen or suicidal or homicidal ideations occur. 09/18/2025 Nausea (ICD-10 - R11.0) 01/10/2025 Alcohol abuse (ICD-10 - F10.10) 09/10/2025 Alcohol abuse (ICD-10 - F10.10) 09/30/2025 Alcohol abuse (ICD-10 - F10.10) Admit to the Women's Residential Unit and initiate standing/protocol orders: The following PRN medications may be self-administered by patients under the supervision of approved staff or administered by nursing staff: Ibuprofen 200mg, 2-4 tablets by mouth (with food) every 6 hours as needed for pain (unless on lithium). (NOTE: Ibuprofen and acetaminophen may be given together, but alternating is recommended for continuous pain relief. Guaifenesin 400 mg, 1 tablet by mouth every four hours as needed for cough and chest congestion (take with large glass of water). Loratadine 10 mg, 1 tablet by mouth daily as needed for allergies, watery itchy eyes, or sinus drainage. Throat Lozenges, up to 4 tablets by mouth every three to four hours as needed for sore throat. Antacid tablets, 1-2 tablets by mouth every one to two hours as needed for indigestion or heart burn. If the client prefers liquid, could use: Liquid Antacid : 1 ounce by mouth up to four times daily as needed for indigestion or heartburn Omeprazole 20mg, 1 capsule by mouth once daily for 14 days for frequent heartburn (frequent heartburn is more than 2 episodes per week). Do not exceed 14 days. Do not give to client already taking a proton-pump inhibitor: esomeprazole (Nexium), lansoprazole (Prevacid), pantoprazole (Protonix), rabeprazole (Aciphex), dexlansoprazole (Dexilant) Zofran ODT disintegrating (under the tongue) 4 mg, 1-2 tablets every 8 hours as needed for nausea/vomiting. Milk of Magnesia (MOM): 1 ounce (30 milliliters) by mouth every day as needed for constipation. OR Miralax: Stir and fully dissolve 17 grams (1 packet or 1 capful to measured line) in any 4 to 8 ounces of beverage then drink once daily for constipation. Do not use for more than 7 days. OR Docusate 100 mg, 1 capsule twice daily as needed for constipation Hydrocortisone 1% Cream, apply topically (to the skin) to the affected area up to three times daily as needed for itching or inflammation (avoid eyes and genitals). 2% Antifungal Cream, apply topically (to the skin) as directed as needed to affected areas for athlete's foot or jock itch. Triple Antibiotic Ointment, apply topically (to the skin) up to three times daily as needed for minor cuts and scrapes. Carmex or Chapstick, apply topically (to the skin) as needed for chapped lips and skin. Orajel, apply to affected areas as needed for mouth or tooth pain. Lubricating Eye Drops, instill 1-2 drops to the affected eye(s) as needed for dry/irritated eye(s). Hemorrhoid medications, apply to affected area according to directions as needed for hemorrhoid discomfort and itch. Nix (Permethrin 1%) cream 2 ounces, apply topically (to the skin) as directed as needed for head lice. Sunscreen 30 SPF, Apply to exposed skin prior to exposure to sun. The following PRN medications must be approved by nursing staff before self-administration by patients: Diphenhydramine 25 mg, 2 tablets by mouth every 4 hours as needed for allergic reaction or itchy rash. Caution: Do not use hydroxyzine within 4 hours of diphenhydramine and vice versa. Loperamide 2 mg capsules, may give two capsules by mouth for the initial dose, followed by one capsule up to 3 times a day as needed for diarrhea. Acetaminophen 500 mg, 1 - 2 tablets by mouth every six hours as needed for pain. (NOTE: Ibuprofen and acetaminophen may be given together, but alternating is recommended for continuous pain relief). Oxygen-May administer oxygen 2L/min via nasal cannula if O2 saturation is less than 92%, AND client complains of shortness of breath. Target O2 saturation is 94-98%. Caution: Remember too much oxygen can be detrimental to a client with COPD. Oxygen is a drug and should be delivered by trained staff only. Nurses may remove superficial splinters and sutures from skin lacerations. May apply gauze or bandages to any weeping wounds. Contact nursing if there is pus, a foul odor, increased pain/redness/swellin g, or if soaking through bandages. 09/10/2025 Substance abuse (ICD-10 - F19.10) s 08/15/2025 Anxiety (ICD-10 - F41.9) 09/30/2025 Substance abuse (ICD-10 - F19.10) 10/07/2025 Substance abuse (ICD-10 - F19.10) 10/10/2025 Anxiety (ICD-10 - F41.9) 09/12/2025 Anxiety (ICD-10 - F41.9) Patient reports severe anxiety and frequent panic attacks. Symptoms include chest tightness, redness, blotchy skin, and difficulty breathing. Emotional distress following breakup and isolation. Provider discussed medication options and support resources. - Discuss medication options for anxiety. - Encourage follow-up with psychiatric services (appointment with psych provider scheduled for 09/13/2025). 09/13/2025 Anxiety (ICD-10 - F41.9) 10/10/2025 Nicotine dependence, unspecified, uncomplicated (ICD-10 - F17.200) patient can have nicotine gum every 2 hours as needed for cravings 2025 Borderline personality disorder (ICD-10 - F60.3) 09/30/2025 Bipolar disorder (ICD-10 - F31.9) 01/10/2025 Major depressive disorder (ICD-10 - F32.9) 09/18/2025 Dry eyes, bilateral (ICD-10 - H04.123) 02/25/2025 Constipation (ICD-10 - K59.00) 09/10/2025 Constipation (ICD-10 - K59.00) 08/15/2025 Opioid use disorder (ICD-10 - F11.99) 11/01/2024 Tobacco use disorder (ICD-10 - F17.200) 09/19/2025 Alcohol use disorder (ICD-10 - F10.99) 09/30/2025 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) 08/15/2025 Tobacco use disorder (ICD-10 - F17.200) 09/10/2025 Opioid use disorder (ICD-10 - F11.99) 2025 Bipolar disorder (ICD-10 - F31.9) 09/13/2025 Insomnia (ICD-10 - G47.00) 09/10/2025 Tobacco use disorder (ICD-10 - F17.200) 09/30/2025 Adult general medical examination (ICD-10 - Z00.00) 09/30/2025 Insomnia (ICD-10 - G47.00) 2025 Nicotine dependence, unspecified, uncomplicated (ICD-10 - F17.200) 09/30/2025 Substance abuse (ICD-10 - F19.10) 09/30/2025 Anxiety (ICD-10 - F41.9) 09/30/2025 Cigarette smoker (ICD-10 - F17.210) 09/30/2025 Dental infection (ICD-10 - K04.7) 09/30/2025 Dry eyes, bilateral (ICD-10 - H04.123) 10/17/2025 Other Discussed medication side effects, adverse effects, risks, benefits, as well as interactions. Encouraged non-use of opioids. Has naloxone. Recommended participation in recovery groups and/or counseling services. May contact office with questions or concerns. 11/01/2024 Other Patient agrees to take medication as prescribed. Discussed medication side effects, adverse effects, risks, benefits, as well as interactions. Encouraged non-use of opioids. Has naloxone. Recommended participation in recovery groups and/or counseling services. May contact office with questions or concerns. 12/04/2024 Other Discussed medication side effects, adverse effects, risks, benefits, as well as interactions. Encouraged non-use of opioids. Has naloxone. Recommended participation in recovery groups/counseling services. Agrees to contact office with questions or concerns. 01/10/2025 Other Clinician met w [facility] client to assess needs for residential services. Clinician gathered information regarding historical presentation of mental health and substance use symptoms including withdrawal, HIV Risk assessment, psychiatric hospitalization history and presenting concern. Clinician conducted PHQ9 and CSSRS assessments as well as social drivers of health screening for the purposes of identifying additional service needs. 2025 Other Increase Seroquel to help with mood instability and sleep. Continuemedications from hospital stay. No stimulants being ordered for this patient. Could consider Strattera next appointment, however, encouraged current medications, therapy, continued sobriety and improved sleep. Continue services as scheduled. Labs completed recently. May self-administer medications or be administered own oral medications per [facility] protocols. Provided informed consent with understanding of side effects, adverse effects, risks and benefits as well as alternative treatments as previously discussed and with the above recommended medications & other aspects of the treatment program. Agrees to return sooner if symptoms worsen or suicidal or homicidal ideations occur. 09/10/2025 Other Continue treatment as recommended by [facility] staff. Encouraged patient to obtain routine medical care with patient's own primary care provider or establish as a patient at [facility] if no current primary care provider. 09/10/2025 Other Clinician met w [facility] client to assess needs for residential services. Clinician gathered information regarding historical presentation of mental health and substance use symptoms including withdrawal, HIV Risk assessment, psychiatric hospitalization history and presenting concern. Clinician conducted PHQ9 and CSSRS assessments as well as social drivers of health screening for the purposes of identifying additional service needs. Engaged individual in suicide risk assessment. Provided risk based intervention to ensure saftey and linkage to ongoing services s 09/12/2025 Other Acamprosate material was printed Discussed medication side effects, adverse effects, risks, benefits, as well as interactions. Encouraged non-use of opioids. Has naloxone. Recommended participation in recovery groups/counseling services. Agrees to contact office with questions or concerns. 09/19/2025 Other Discussed medication side effects, adverse effects, risks, benefits, as well as interactions. Encouraged non-use of opioids and alcohol. Has naloxone. Recommended participation in recovery groups/counseling services. Agrees to contact office with questions or concerns. 09/30/2025 Other Clinician met w [facility] client to assess needs for residential services. Clinician gathered information regarding historical presentation of mental health and substance use symptoms including withdrawal, HIV Risk assessment, psychiatric hospitalization history and presenting concern. Clinician conducted PHQ9 and CSSRS assessments as well as social drivers of health screening for the purposes of identifying additional service needs. 10/04/2025 Other Discussed medication side effects, adverse effects, risks, benefits, as well as interactions. Encouraged non-use of opioids. Has naloxone. Recommended participation in recovery groups and/or counseling services. May contact office with questions or concerns. 10/07/2025 Other Clinician met w [facility] client to assess needs for residential services. Clinician gathered information regarding historical presentation of mental health and substance use symptoms including withdrawal, HIV Risk assessment, psychiatric hospitalization history and presenting concern. Clinician conducted PHQ9 and CSSRS assessments as well as social drivers of health screening for the purposes of identifying additional service needs. Clinician met with client to assess needs and preferences for services. Clinician explored therapy goals, history of engagement, psychiatric history and diagnosis. Clinician provided education on same day call in therapy, traditional therapy and recovery room nurse services. Referrals for preferred methods will be sent following appointment. 10/16/2025 Other Clinician met w [facility] client to assess needs and preferences for services. Clinician explored therapy goals, history of engagement, psychiatric history and diagnosis. Clinician provided education on same day call in therapy, traditional therapy and recovery room nurse services. Referrals for preferred methods will be sent following appointment. 10/08/2025 RN monitored client self administering Priftin 150 mg 6 tabs and Isoniazid 300mg 3 tabs po client tolerated well 10/15/2025 Nurse monitore d client self administer Priftin 150 mg 6 tabs and Isoniazid 300mg 3 tabs po pt tolerated well 10/20/2024 Client reports generalized withdrawal symptoms. Not reporting any other medical needs/concerns. Plan Of Treatment Future Test Test Name Order Date Mammogram Breast - Bilateral Screening with ABUS, diagnostic mammogram/ultrasound, and/or biopsy as clinically indicated 11/08/2024 Next Appt Details Provider Name:Elba Kumar, 10/22/2025 02:00:00 PM, [address] [place], [address], Provider Name:Elba mayberry 10/30/2025 09:00:00 AM, [address], [place], [address], Provider Name:Miri rankin, 11/14/2025 10:00:00 AM, [address] [place], [address], Insurance Providers Payer Name Payer Address Payer Phone Subscriber Number Group Number Insured Name Patient Relationship to Insured Coverage Start Date Coverage End Date [employer] [address] [place] [phone] [id number] Maryjo Garduno Self - patient is the insured 4 [employer] [facility] [address] [place] [address] [id number] Maryjo Garduno Self - patient is the insured 4 [employer] [address] [address] [place] [address] [id number] Maryjo Garduno Self - patient is the insured 4 [employer] [address] [address] [place] [address] [id number] Maryjo Garduno Self - patient is the insured 5 Medications Administered Medication Instructions Date of Administration Dosage Diagnosis (ICD Code) Notes Invega Sustenna 10/10/2025 234 mg [place] agosto D 10/10/2025 02:25 PM RESEARCH PHARMACIST >Given IM LMD, tolerated well. [facility]# [id number]. Invega Sustenna 10/17/2025 156 mg [place] agosto D 10/17/2025 08:35 AM RESEARCH PHARMACIST >Given IM RMD, tolerated well. [facility]# [id number]. Medical (General) History Medical History History ICD Code severe depression ETOH colitis fatty liver Opioid use disorder Alcohol use disorder Anxiety disorder Surgical History Surgery Date(Month/Year) breast augmentation Collarbone surgery, end of may Hospitalization History Reason Date(Month/Year) Concussion and intoxication, [facility], may/july [facility] 08/2025 [facility] for concussion after a fall 09/01 025 [facility] 07/2024 [facility] Alcohol/Drug detox Alcohol/Drug Detox stays a couple of times [place] 05/2024 [facility] 07/2024
[2025-10-17 17:09] VITALS: BP 106/72; PULSE 76; RESP 16; TEMP 37; O2SAT 97
[2025-10-17 17:41] LABS: Hematocrit 33.0 % (37.0-47.0); Hemoglobin 11.3 g/dL (12.0-15.0); Immature Granulocyte Percent A 0.4 % (0-0.5); Lymphocytes Absolute Auto 1.53 K/mm3 (0.9-3.2); Mean Corpuscular HGB Conc 34.2 g/dl (32-36); Mean Corpuscular Hemoglobin 31.0 pg (26-34); Mean Corpuscular Volume 90.7 fl (80-100); Nucleated Red Blood Cells Absolute Auto 0.000 K/mm3 (0.0-0.012); Nucleated Red Blood Cells Perc 0.0 % (0.0-0.2); Platelet Count Result 220 k/mm3 (150-375); Red Blood Count 3.64 M/mm3 (4.2-5.4); White Blood Count 4.6 K/mm3 (4.5-10.0)
[2025-10-17 17:52] LABS: Alanine Aminotransferase 17 U/L (6-35); Albumin Level 3.5 g/dL (3.5-5.1); Alkaline Phosphatase 55 U/L (38-126); Anion Gap 3 mmol/L (4-12); Aspartate Amino Transferase 39 U/L (14-36); Bilirubin,Total 0.6 mg/dL (0.2-1.3); Blood Urea Nitrogen 9 mg/dL (7-17); Calcium 8.4 mg/dL (8.4-10.2); Carbon Dioxide 33 mmol/L (22-30); Chloride 101 mmol/L (98-107); Estimated CRCL calculation 88 ml/min; Estimated Glomerular Filt Rate > 60; Glucose 137 mg/dL (65-110); Lipase 92 U/L (23-300); Potassium 3.3 mmol/L (3.4-5.0); Sodium 137 mmol/L (137-145); Total Protein 5.8 g/dL (6.3-8.2)
--- NOTE | 2025-10-17 17:56 | ED.HA ---
HPI - Headache General Chief Complaint: Nausea/Vomiting/Diarrhea Stated Complaint: vomiting, near syncope from [place] Time Seen by Provider: 10/17/25 17:08 History of Present Illness HPI Narrative: Patient is a 40-year-old female who presents to the ER with emesis, headache, sweating, anxiety, and previous syncopal episode that started around 1:00 p.m. this afternoon. She reports she is currently living at [facility] for alcohol treatment. Patient reports she has been clean for the past 3 weeks. She reports today she received her 2nd dose of Invega. Patient denies any chest pain, shortness of breath, or recent fevers. She reports that many people at [facility] have been sick with a GI bug and is concerned she contracted this also. Patient endorses a history of mental health issues but denies any other medical history relevant to this ER visit. Related Data Allergies Allergy/AdvReac Type Severity Reaction Status Date / Time Corticosteroids AdvReac Redness of Verified 10/17/25 16:26 (Glucocorticoids) Skin Review of Systems Review of Systems: All systems reviewed & are unremarkable except as noted in HPI and below PMFSH Past Medical History Medical History Depression Alcohol abuse Social History Social History Substance use type: marijuana and opiates Exam Narrative: GENERAL: Well appearing, well-nourished, non-toxic, in no acute distress. HEAD: Normocephalic, atraumatic. NECK: Supple. No adenopathy, no masses. RESPIRATORY: Airway patent, respirations nonlabored. Clear to auscultation bilaterally, no rales, rhonchi, wheezing. CARDIOVASCULAR: Regular rate and rhythm without murmurs, rubs, or gallops. Peripheral pulses 2+ and equal bilaterally. ABDOMINAL: Soft, nontender, nondistended, no hepatosplenomegaly. Normoactive BS. MUSCULOSKELETAL: Moves all extremities. Strength/ROM intact without gross deformities. SKIN: Warm, dry, normal color. No rashes. NEURO: A&O X3. Speech clear. Cranial nerves II-XII intact. No ataxic movements. PSYCHIATRIC: Flat affect. Course Vital Signs Vital signs: Vital Signs Temperature 36.6 C 10/17/25 16:19 Pulse Rate 79 10/17/25 16:19 Respiratory Rate 16 10/17/25 16:19 Blood Pressure 109/73 10/17/25 16:19 Pulse Oximetry 100 10/17/25 16:19 Oxygen Delivery Room Air 10/17/25 16:19 Temperature 37.0 C 10/17/25 17:09 Pulse Rate 76 10/17/25 17:09 Respiratory Rate 16 10/17/25 17:09 Blood Pressure 106/72 10/17/25 17:09 Pulse Oximetry 97 10/17/25 17:09 Oxygen Delivery Room Air 10/17/25 17:09 MDM MDM Narrative Medical decision making narrative: Patient is a 40-year-old female who presents to the ER with emesis, headache, sweating, anxiety, and previous syncopal episode that started around 1:00 p.m. this afternoon. She reports she is currently living at [facility] for alcohol treatment, but denies any benzo use. Patient reports she has been clean for the past 3 weeks. She reports today she received her 2nd dose of Invega. Patient denies any chest pain, shortness of breath, or recent fevers. She reports that many people at [facility] have been sick with a GI bug and is concerned she contracted this also. Patient endorses a history of mental health issues but denies any other medical history relevant to this ER visit. Labs Ordered: CBC, CMP, lipase, UA, COVID/flu/RSV Imaging Ordered: CT brain Medications Ordered: Decadron IM, Toradol IV, Benadryl IV, Reglan IV, 1 L normal saline IV bolus, magnesium IV, Ativan 1 mg p.o. x2 Results: Pt's CT scan indicates No acute intracranial hemorrhage, acute infarction or abnormal extra axial fluid collection. Ventricles are normal and symmetric. No mass/mass effect. The orbits, paranasal sinuses and mastoid air cells are normal Diagnosis: Migraine headache, dehydration Patient Education/Shared MDM: Results of lab work and imaging shared with patient. Pt is wondering if her symptoms may be associated with her Invega shots. Headaches are a listed side effect of Invega and this was shared with pt. She declined to provide a urine sample, as she says her symptoms are not related to her urinary tract. Throughout her time in the emergency department she has a requested a prescription for Ativan 4 times. It has been explained to patient that she will not receive a prescription for Ativan but rather she should follow-up with her primary care provider if she needs anxiety medication. Patient was offered a prescription for hydroxyzine but she declined. She endorses improvement of symptoms following medication administration. Patient strongly advised to maintain hydration status upon discharge and follow-up with her PCP as soon as possible. She will be discharged home with a prescription for Reglan, as she reports this really helped relieve her symptoms of nausea and headache. Strict return precautions provided. Patient verbalized understanding and is in agreement with plan. Vital signs stable at time of discharge. All questions answered. Differential Diagnosis Differential Diagnosis: migraine headache, subdural hemorrhage, COVID/flu/RSV, anxiety Lab Data MDM Lab Attestation statement: I personally reviewed the patient's lab results. 10/17/25 17:33 10/17/25 17:33 Labs: Lab Results 10/17/25 10/17/25 Range/Units 17:33 18:14 WBC 4.6 (4.5-10.0) K/mm3 RBC 3.64 L (4.2-5.4) M/mm3 Hgb 11.3 L (12.0-15.0) g/dL Hct 33.0 L (37.0-47.0) % MCV 90.7 (80-100) fl MCH 31.0 (26-34) pg MCHC 34.2 (32-36) g/dl RDW 12.4 (11.5-14.5) % Plt Count 220 (150-375) k/mm3 MPV 10.2 (7.4-10.4) fl Immature Gran % (Auto) 0.4 (0-0.5) % Neut % (Auto) 56.6 (45.5-73.1) % Lymph % (Auto) 33.0 (18.3-44.2) % [place] % (Auto) 7.5 (2.6-8.5) % Eos % (Auto) 1.9 (0-4.4) % Baso % (Auto) 0.6 (0.2-1.2) % Lymph # (Auto) 1.53 (0.9-3.2) K/mm3 [place] # (Auto) 0.4 (0.1-0.6) K/mm3 Eos # (Auto) 0.1 (0-0.3) K/mm3 Baso # (Auto) 0.0 (0.0-0.1) K/mm3 Abs Immat Gran (auto) 0.02 (0.00-0.031) K/mm3 Absolute Neuts (auto) 2.6 (1.3-6.7) K/mm3 Absolute Nucleated RBC 0.000 (0.0-0.012) K/mm3 Nucleated RBC % 0.0 (0.0-0.2) % Sodium 137 (137-145) mmol/L Potassium 3.3 L (3.4-5.0) mmol/L Chloride 101 (98-107) mmol/L Carbon Dioxide 33 H (22-30) mmol/L Anion Gap 3 L (4-12) mmol/L BUN 9 (7-17) mg/dL Creatinine 0.56 L (0.7-1.0) mg/dL Estim Creat Clear Calc 88 ml/min Estimated GFR > 60 (59 - ) Glucose 137 H (65-110) mg/dL Calcium 8.4 (8.4-10.2) mg/dL Total Bilirubin 0.6 (0.2-1.3) mg/dL AST 39 H (14-36) U/L ALT 17 (6-35) U/L Alkaline Phosphatase 55 (38-126) U/L Total Protein 5.8 L (6.3-8.2) g/dL Albumin 3.5 (3.5-5.1) g/dL Lipase 92 (23-300) U/L Influenza A (RT-PCR) Negative (Negative) Influenza B (RT-PCR) Negative (Negative) RSV (RT-PCR) Negative (Negative) SARS-CoV-2 RNA (RT-PCR) Negative (Negative) Imaging Data Attestation: I personally reviewed and interpreted this imaging study as follows: Radiologist's impression: ITS Impressions Head CT 10/17/25 18:16 IMPRESSION: 1. Normal head CT. Discharge Plan Discharge Clinical Impression: Dehydration, Headache, Medication side effect Patient Disposition: Home Condition: Stable Instructions: Antibiotic Form, Dehydration (ED), Acute Headache (DC) Additional Instructions: Please return to the ER with any worsening symptoms. Follow-up with primary care provider as soon as possible for further evaluation and treatment of your anxiety. Take all medications as prescribed, including regularly scheduled medications. You may take Tylenol and/or ibuprofen for headaches, along with Reglan to help relieve nausea. Please remember to drink lots of water. Patient Language: [place] Prescriptions: New metoclopramide HCl [Reglan] 10 mg tablet 10 mg PO Q6H PRN (Reason: nausea and vomiting) Qty: 20 0RF metoclopramide HCl [Reglan] 10 mg tablet 10 mg PO Q6H PRN (Reason: nausea and vomiting) Qty: 20 0RF No Action clotrimazole 1 % cream 1 applic topical BID 14 Days Qty: 30 0RF Follow-up/Referrals: Ehsan Robertson MD [Physician, Family Practice] UNKNOWN,DOCTOR [Primary Care Provider] Stand Alone Forms: Work/School Release IP Time of Disposition: 20:07
--- OUTSIDE RECORDS SUMMARY | 2025-10-17 17:57 | XMS_ITS | Clinical Summary ---
Author Organization [facility] Address [address] [place] [address] Care Team Providers Care Director Of Government Sales Name Role Phone Ramon Randolph MD Primary Care Provider [phone] Allergies Active Allergy Reactions Criticality Noted Date [...] transferrin saturation of 4. She was transferred [facility]. They made no changes to her medication. She was set up with psychiatric follow-up [facility] for December 05 at 11:00 a.m.. She [...] PM CDT): Anneliese. She is following with [facility]. Stopped her alprazolam. Explained to her that we will no longer fill the alprazolam or the zolpidem. Alcohol dependence with uncomplicated withdrawal 03/14/2024 Assessment & Plan (01/29/2025 12:11 PM CDT): Last drink on 01/21/25. Received some doses of Librium while at [place]. Also started on clonazepam 1 mg TID [...] CDT): Anneliese. Given her the name of [facility]. She will continue with AA Iron deficiency anemia due to chronic blood loss 12/08/2023 Assessment & Plan (04/09/2024 2:53 PM CDT): Iron panel done recently looks good. Hemoglobin hematocrit are stable. Continue ferrous sulfate Assessment & Plan (12/13/2023 7:40 AM RAILROAD TRACK MECHANIC): Most likely related to menstrual cycle. Would start her on iron 325 mg 3 times a day. Recheck CBC and iron panel in one-month Panic attacks 09/29/2022 Assessment & Plan (12/13/2023 7:40 AM RAILROAD TRACK MECHANIC): Continue fluoxetine. Explained to her she needs to follow-up psychiatry for refills of the alprazolam because I will no longer be refilling it. Assessment & Plan (08/01/2023 1:55 PM CDT): Still having panic attacks. Continue fluoxetine and alprazolam p.r.n. Encouraged to keep appointment at [facility] later in the month. Assessment & Plan (10/20/2022 9:31 AM RAILROAD TRACK MECHANIC): Improving with alprazolam and increase of fluoxetine Assessment & Plan (09/29/2022 2:51 PM RAILROAD TRACK MECHANIC): Will increase fluoxetine to 60 mg once a day. Given number to [facility]. Needs to have psychiatric follow up. Stop [...] trazodone. Assessment & Plan (12/13/2023 7:40 AM RAILROAD TRACK MECHANIC): Explained to her she will need to [...] transferrin saturation of 4. She was transferred [facility]. They made no changes to her medication. She was set up with psychiatric follow-up [facility] for December 05 at 11:00 a.m.. She presents today for hospital follow-up. Assessment & Plan (04/09/2024 3:00 PM CDT): She will be following with Psychiatry at [facility]. She has no longer on alprazolam. Stable on fluoxetine Zyprexa. Assessment & Plan (12/13/2023 7:40 AM RAILROAD TRACK MECHANIC): Stable on fluoxetine and Zyprexa. She will need continue follow-up with Psychiatry. Assessment & Plan (07/28/2023 9:56 AM CDT): Stable on Zyprexa and fluoxetine Assessment & Plan (09/29/2022 2:47 PM RAILROAD TRACK MECHANIC): Continue Zyprexa and Fluoxetine. Assessment & Plan [...] (05/29/2021): Added automatically from request for surgery [id number] Assessment & Plan (01/27/2025 11:46 AM CDT): Added on HIV & RPR for routine screening No other medical issues or complaints identified Remainder of plan as per psychiatry Assessment & Plan (07/29/2022 11:07 AM CDT): Normal CMP and CBC this month. Follows with hydramatic specialist for control. Last Pap normal with negative HPV last year. Discussed with patient need to stop vaping nicotine. Resolved Problems Problem Noted Date Diagnosed Date Resolved Date Cystitis with hematuria 10/01/2022 0803/2023 Assessment & Plan (10/01/2022 10:37 AM RAILROAD TRACK MECHANIC): Drink plenty of fluids. If develop fever, uncontrolled vomiting, marked general decline, go to ER. Will need IV antibiotics and fluids. Right upper quadrant abdominal pain 07/19/2022 07/29/2022 Left foot pain 09/16/2021 07/29/2022 Assessment & Plan (09/16/2021 1:31 PM RAILROAD TRACK MECHANIC): Patient advised to walk on heel until results of x-ray back. Continue icing and elevation. Due to significant pain level will treat pain with Lejunior. Hives 07/17/2021 2022 Assessment & Plan (07/17/2021 [...] Type Department Care Team Description 10/03/2025 Telephone [facility] Medical Group Family Medicine at [address] [place] [address] Ramon Randolph MD Med Refill 08/15/2025 Telephone [facility] Medical [facility] Family Medicine at [address] [place] [address] Ramon Randolph MD Symptom Based Call 08/13/2025 11:15 AM CDT Office Visit [facility] Medical [facility] [address] [place] [address] [address] [place] [address] Rema De La Rosa, Follow-up examination after orthopedic surgery (Primary Dx); Closed displaced fracture of left clavicle, unspecified part of clavicle, sequela 08/13/2025 11:13 AM CDT - 08/13/2025 11:59 PM CDT Hospital Encounter [facility] [address] [place] [address] Follow-up examination after orthopedic surgery Discharge Disposition: Discharge to home or self care 08/05/2025 Orders Only [facility] Family Medicine at [address] [place] [address] Ramon Randolph MD 07/25/2025 Telephone [facility] Family Medicine at [address] [place] [address] Ramon Randolph MD Symptom Based Call 07/23/2025 Telephone [facility] Gastroenterology at [address] [place] [address] Amber Bella NP from Last 3 Months [...] drink = 0.6 oz pur e alcohol) [facility] Utilities Answer Date Recorded In the past 12 months has e [employer], [employer], oil, or water [employer] threatened to shut off services in your [...] often do you attend chur ch or quaker services? Never 01/28/2025 Do you belong to any clubs o r organizations such as denominational groups, unions, fraternal or athletic groups, or [...] staff should administer the PHQ-9) 4 04/24/2025 [facility] Occupational Stress Questionnaire Answer Date Recorded [...] any time in the past 12 m [facility], were you homeless or living in a senior care (including now)? Yes 01/28/2025 AUDIT-C Answer Date [...] on file Legal Sex Female 10:10 PM RAILROAD TRACK MECHANIC Gender Identity Not on file Sexual Orientation [...] pont Epidur al Livin g Complications:None Delivery Location:[facility] 009 36w 0d 2.438 kg (5 lb 6 oz) F Vag-S pont Epidur al Livin g Complications:None Delivery Location:[place] 2012 IAB Last Filed Vital Signs Vital [...] Completed 08/07/2025 Medical Devices Implanted Type Area Field Sales Representative Device Identifier Shelf Expiration Date Model / Serial / Lot Screw Screw Right: Ankle Synthes Plate Bone Compression Locking Shaft Cs1 Left Clavicle Va Lcp 2.7mm Ss 02112.620 - [id number] Implanted:Qty: 1 on 06/28/2025 by Rema De La Rosa DO at [facility] Left: Clavicle Synthes 112620 / / Synthes Lcp 1.6mm 150mm 10mm Thread Compression Wire Fixation Nonsterile 410 - [id number] Implanted:Qty: 1 on 06/28/2025 by Rema De La Rosa DO at [facility] Left: Clavicle Synthes 410 / / Synthes Screw Bone Cortical St Lcp 2.7x14mm Ss 202.874 - [id number] Implanted:Qty: 1 on 06/28/2025 by Rema De La Rosa DO at [facility] Left: Clavicle Synthes 202.874 / / Synthes 2.4mm 14mm Self Tap Stardrive Cortex T8 Screw Bone 201.764 - [id number] Implanted:Qty: 1 on 06/28/2025 by Rema De La Rosa DO at [facility] Left: Clavicle Synthes 201.764 / / Synthes 2.7mm 16mm Self Tap Lock Variable Angle [employer]rive T8 Screw Bone 02211.016 - [id number] Implanted:Qty: 2 on 06/28/2025 by Rema De La Rosa DO at [facility] Left: Clavicle Synthes 02..016 / / Synthes 2.7mm 18mm Self Tap Lock Variable Angle St[employer]rive T8 Screw Bone 02.018 - [id number] Implanted:Qty: 3 on 06/28/2025 by Rema De La Rosa DO at [facility] Left: Clavicle Synthes 02..018 / / Synthes 2.7mm 20mm Self Tap Lock Variable Angle Stardrive T8 Screw Bone 02.020 - [id number] Implanted:Qty: 2 on 06/28/2025 by Rema De La Rosa DO at [facility] Left: Clavicle Synthes ..020 / / Synthes 2.7mm 14mm Self Tap Lock Variable Angle Stardrive T8 Screw Bone 02.014 - [id number] Implanted:Qty: 1 on 06/28/2025 by Rema De La Rosa DO at [facility] Left: Clavicle Synthes 014 / / Explanted Type Area Field Sales Representative Device Identifier Shelf Expiration Date Model / Serial / Lot Synthes 2.7mm 5mm 18mm 2.5mm Self Tap [employer]rive Cortical T8 Screw Bone 202.878 - [id number] Explanted:Qty: 1 on 06/28/2025 at [facility] Synthes 202.878 / / Procedures Procedure [...] Ivis Randolph D.O. PS T: Report ID: [id number] Reading Location: [id number] Procedure Note Ivis Randolph DO - 08/14/2025 [...] Ivis Randolph D.O. PS T: Report ID: [id number] Reading Location: [id number] Rema De La Rosa DO IM XR PROCEDURES Final Result * ThinPrep Pap with HPV (05/29/2021 11:04 AM CDT) Pap test 05/29/2021 11:0 4 AM CDT 05/29/2021 11:04 AM CDT Narrative 06/03/2021 2:25 PM CDT [facility] Department of Pathology [address] [place] [id number] Final Report with Addendum Note to [...] the details. Patient Name: STANISLAV GARDUNO Address: [address] [place] [address] , [place] [id number] Gender: F : 1985 (Age: 36) Service: Laboratory Location: N : [id number] [facility] #: [id number] Patient Type: [facility] SPECIMEN Taken: 05/29/2021 Received: 05/29/2021 Accessioned:: 06/01/2021 Reported: 06/03/2021 Physician(s): Jennifer Canales M.D. [facility] Diagnosis: Source of Specimen: Imaged Thinprep Pap Test plus HPV - [address] [place] Team Member Cytologic Material Specimen Adequacy: - Satisfactory for [...] Imaged Thinprep Pap Test plus HPV - Food Court Team Member Cytologic Material Clinical History: Last Menstrual Period: [...] determined by the Surgical Pathology Department at [facility] as part of an ongoing air quality instrument specialist program and in compliance with federally mandated [...] characteristics determined by the Surgical Pathology Department [facility]. It has not been cleared or approved by the [place]. [place]. Food and Drug Administration. Jennifer Canales MD LAB CYTOLOGY ORDERABLES Final Re sult from Last 3 Months or Most Recently Relevant to Health Maintenance Insurance [facility] [employer]ET[employer] BETTER [facility] AETNA BETTER [facility] Advance Directives For more information, please contact: [phone] * Full Code (Latest Code Status on File) Date Activated Date Inactivated Comments 01/27/2025 2:14 AM 01/27/2025 3:50 AM * Full Code Date Activated Date Inactivated Comments 10/05/2024 11:15 PM 10/17/2024 7:03 PM Care Teams Director Of Government Sales Relationship Specialty Start Date End Date Ramon Randolph MD [address] [place] [address] PCP - General Family Medicine 04/24/25
[2025-10-17] MEDS: METOCLOPRAMIDE HCL INJ 10 MG/2 ML VIAL IV PUSH (18:14)
[2025-10-17] MEDS: SODIUM CHLORIDE 0.9% IV 1,000 ML 999 ML IV CONT (18:14)
[2025-10-17] MEDS: LORazepam (*CRX) 1 MG TABLET PO ×2 (18:14→20:23)
[2025-10-17] MEDS: MAGNESIUM SULF 1 GM/D5W 100 ML 1 GM/100 ML BAG IVPB (18:14)
[2025-10-17 18:56] LABS: Influenza A QL RT-PCR Negative (Negative); Influenza B QL RT-PCR Negative (Negative); RSV RNA, RT-PCR Negative (Negative); SARS-CoV-2 RNA PCR Negative (Negative)
[2025-10-17] MEDS: KETOROLAC 15 MG/ML VIAL (*BKC) IV PUSH (19:25)
[2025-10-17] MEDS: dexAMETHasone SOD PHOS INJ 10 MG/ML 1 ML VIAL IM (19:28)
== END 2025-10-17 20:39 | disposition home or self-care (01) ==
PROVIDERS: Emergency Provider Registered Nurse
DX: R51.9 Headache, unspecified (principal); E86.0 Dehydration; T43.595A Adverse effect of other antipsychotics and neuroleptics, initial encounter; Z20.822 Contact with and (suspected) exposure to COVID-19
CPT/HCPCS: 36415; 70450; 80053; 83690; 85025; 87637; 96365; 96372; 96375; 99284; A9270; J1100; J1200; J1885; J2765; J3475; J7030